=== PATIENT | female | born 1945 | race Caucasian/White ===

== ENCOUNTER 2018-11-20 10:50 | Day surgery (SDC) | payer MEDICARE, OTHER ==
[2018-11-19 11:28] VITALS: BMI 21.4
[~2018-11-20 10:50] MED LIST: LACTATED RINGERS 1,000 ML IV SCH; LIDOCAINE 1% 20 ML VIAL (10MG/ML) FOR IV START INTRADERMA PRN
[2018-11-20 11:41] VITALS: RESP 16; TEMP 97.7
[2018-11-20] MEDS ORDERED: PROPOFOL 10 MG/ML 20 ML VIAL IV ONE (12:45)
--- NOTE | 2018-11-20 13:38 | P.PCN ---
Date of Procedure: 11/20/18 Procedure(s) Performed: Procedures: 1. Esophagogastroduodenoscopy and biopsy. 2. Total colonoscopy. Preoperative diagnosis: Dyspepsia and history of diverticulitis. Postoperative diagnosis: 1. Sliding hiatal hernia with no obvious esophagitis or complicated reflux disease. 2. Mild gastritis and duodenitis. 3. Sigmoid diverticulosis with no evidence of acute diverticulitis, strictures, polyps or cancer. Brief clinical history: The patient is a 73-year-old female who was evaluated in the office earlier this month regarding dyspepsia and history of diverticulitis in June 2018 while in [place] which was treated with antibiotics for 2 weeks. Her last colonoscopy was more than 10 years ago and she believes she had an upper endoscopy around that time as well. Procedure: With the patient on her left lateral decubitus position and after informed consent and adequate sedation, I passed the Olympus-GIF H190 video upper endoscope through the cricopharyngeus down the esophagus. GE junction was around 38 cm from the incisors and there was a small sliding hiatal hernia with no obvious esophagitis or complicated reflux disease. The endoscope was then passed into the stomach which was insufflated with air and inspected in detail including the retroflex view in the cardia. There was some mottling and erythema in the antrum but no ulcers or erosions. Pyloric channel did not show any ulcers. Duodenal bulb, post bulbar area and descending duodenum showed minimal erythema. Because of her symptoms, I obtained biopsies from the duodenum, antrum and esophagus then the endoscope was withdrawn and I proceeded to perform the colonoscopy. Perianal area did not show any fissures or fistulas. There were no masses felt on digital rectal examination. The Olympus CFH 190L video colonoscope was then inserted in the rectum in the usual fashion and advanced to the cecum. There were multiple diverticular orifices seen scattered in the sigmoid but there was no evidence of acute colitis or strictures. No polyps or tumors were seen. The mucosa appeared healthy. I retroflexed the endoscope in the rectum before the endoscope was withdrawn. The patient tolerated the procedure well Plan: The patient was reassured Will await biopsy results and make further plans based on her course and biopsy results.
[2018-11-20 14:06] VITALS: BP 152/76; PULSE 66
== END 2018-11-20 14:05 | disposition home or self-care (01) ==
LOC: ORWHC2ENDO 10:50
DX: K57.30 Diverticulosis of large intestine without perforation or abscess without bleeding (principal); K44.9 Diaphragmatic hernia without obstruction or gangrene; K29.50 Unspecified chronic gastritis without bleeding; K29.80 Duodenitis without bleeding; K21.9 Gastro-esophageal reflux disease without esophagitis; I25.10 Atherosclerotic heart disease of native coronary artery without angina pectoris; I10 Essential (primary) hypertension; M19.90 Unspecified osteoarthritis, unspecified site; E78.5 Hyperlipidemia, unspecified; E07.9 Disorder of thyroid, unspecified; J45.909 Unspecified asthma, uncomplicated; Z95.810 Presence of automatic (implantable) cardiac defibrillator; Z95.5 Presence of coronary angioplasty implant and graft; Z79.82 Long term (current) use of aspirin; Z79.890 Hormone replacement therapy; Z79.899 Other long term (current) drug therapy; Z88.5 Allergy status to narcotic agent
CPT/HCPCS: 88305; 45378; 43239; J2704

== ENCOUNTER → 2019-02-26 | Outpatient (CLI) | payer MEDICARE ==
--- NOTE | 2019-02-26 13:34 | CT ---
EXAMINATION TYPE: CT lumbar spine wo con DATE OF EXAM: 02/26/2019 12:48 PM COMPARISON: X-ray 11/05/2013 HISTORY: Lower back pain to L5 CT DLP: 960 mGycm Automated exposure control for dose reduction was used. Unenhanced CT of the lumbar spine was performed. Bone and soft tissue window settings are submitted as well as coronal and sagittal reconstructions. There are bilateral nonobstructing renal calculi measuring less than 5 mm. Atherosclerotic change of the aorta is seen with a focal area of aortic the maximal measurement of 1.8 cm. L1-L2: Mild disc space narrowing. No obvious disc herniation or canal stenosis. Neural foramina paten t. L2-L3: Schmorl's node along the inferior endplate of L2. No definite disc herniation or canal stenosi s. No foraminal encroachment. L3-L4: No obvious disc herniation or canal stenosis. Neural foramina patent. Disc spaces preserved. L4-L5: Disc space preserved however there is broad-based central disc bulging or protrusion with effa cement of thecal sac. Facet arthropathy is noted. Mild central stenosis and bilateral mild neural for aminal encroachment suspected. L5-S1: Vacuum disc compatible severe degenerative disc disease. Broad-based central disc bulging but no canal stenosis. Mild bilateral neural foraminal encroachment. Discogenic marrow changes are seen a nd there is facet arthropathy IMPRESSION: 1. Severe degenerative disc disease L5-S1 with central disc bulging but no canal stenosis. Mild bilat eral foraminal encroachment. 2. Disc bulging centrally L4-L5 with effacement of thecal sac. Borderline to mild central stenosis an d mild bilateral foraminal encroachment. 3. There are bilateral nonobstructing renal calculi measuring less than 5 mm.
== END | disposition home or self-care (01) ==
LOC: RADCTMAIN 12:04
PROVIDERS: ATTEND Orthopaedic Surgery Orthopaedic Surgery of the Spine
DX: M48.061 Spinal stenosis, lumbar region without neurogenic claudication (principal); M51.37 Other intervertebral disc degeneration, lumbosacral region; M51.86 Other intervertebral disc disorders, lumbar region; M51.87 Other intervertebral disc disorders, lumbosacral region; I11.0 Hypertensive heart disease with heart failure; I50.9 Heart failure, unspecified; Z95.818 Presence of other cardiac implants and grafts
CPT/HCPCS: 72131

== ENCOUNTER → 2020-01-01 | Outpatient (CLI) | payer MEDICARE | END | disposition home or self-care (01) | LOC: LABWHC1 10:46 | PROVIDERS: ATTEND Internal Medicine Endocrinology, Diabetes & Metabolism | DX: E03.8 Other specified hypothyroidism (principal) | CPT/HCPCS: 36415; 84443 ==

== ENCOUNTER → 2020-03-14 | Outpatient (CLI) | payer MEDICARE | END | disposition home or self-care (01) | LOC: LABWHC1 11:37 | PROVIDERS: ATTEND Internal Medicine Endocrinology, Diabetes & Metabolism | DX: E03.8 Other specified hypothyroidism (principal) | CPT/HCPCS: 36415; 84443 ==

== ENCOUNTER → 2020-05-09 | Outpatient (CLI) | payer MEDICARE | END | disposition home or self-care (01) | LOC: LABWHC1 11:11 | PROVIDERS: ATTEND Internal Medicine Endocrinology, Diabetes & Metabolism | DX: E03.8 Other specified hypothyroidism (principal) | CPT/HCPCS: 36415; 84443 ==

== ENCOUNTER → 2020-06-30 | Outpatient (CLI) | payer MEDICARE | END | disposition home or self-care (01) | LOC: LABWHC1 10:48 | PROVIDERS: ATTEND Internal Medicine Endocrinology, Diabetes & Metabolism | DX: E03.8 Other specified hypothyroidism (principal) | CPT/HCPCS: 36415; 84443 ==

== ENCOUNTER → 2020-08-22 | Outpatient (CLI) | payer MEDICARE | END | disposition home or self-care (01) | LOC: LABWHC1 10:29 | PROVIDERS: ATTEND Internal Medicine Endocrinology, Diabetes & Metabolism | DX: E03.8 Other specified hypothyroidism (principal) | CPT/HCPCS: 36415; 84443 ==

== ENCOUNTER → 2020-11-09 | Outpatient (CLI) | payer MEDICARE | END | disposition home or self-care (01) | LOC: LABWHC1 10:04 | PROVIDERS: ATTEND Internal Medicine Endocrinology, Diabetes & Metabolism | DX: E03.8 Other specified hypothyroidism (principal) | CPT/HCPCS: 36415; 84443 ==

== ENCOUNTER → 2021-02-27 | Outpatient (CLI) | payer MEDICARE | END | disposition home or self-care (01) | LOC: LABWHC1 10:37 | PROVIDERS: ATTEND Internal Medicine Endocrinology, Diabetes & Metabolism | DX: E03.8 Other specified hypothyroidism (principal) | CPT/HCPCS: 36415; 84443 ==

== ENCOUNTER 2021-05-18 05:04 | Emergency (ER) | payer MEDICARE ==
[2021-05-18 05:15] VITALS: BP 158/90; PULSE 98; RESP 18; TEMP 99.3
--- NOTE | 2021-05-18 05:18 | ED ---
Recheck HPI - General Chief Complaint: Upper Respiratory Infection Stated Complaint: Cough, Covid+ Time Seen by Provider: 05/18/21 05:06 Source: patient, RN notes reviewed, old records reviewed Mode of arrival: ambulatory Limitations: no limitations - History of Present Illness Initial Comments: This is a 76-year-old female with known history of coronavirus coming in for antibiotic treatment. Patient does have positive coronavirus exposure patient has been vaccinated. Patient has no complaints of chest pain or shortness of breath. MD Complaint: abnormal lab (Positive coronavirus) -: days(s) Returns Today for: persistent/worsening pain related to initial visit Symptoms Since Prior Visit: no new symptoms Context: planned re-check Associated Symptoms: none Treatments Prior to Arrival: other (none) - Related Data Home Medications Medication Instructions Recorded Confirmed Aspirin 81 mg PO DAILY 01/11/14 11/20/18 Fluticasone Propionate [Flonase] 1 spray EA NOSTRIL BID 01/11/14 11/20/18 Losartan [Cozaar] 25 mg PO 1700 01/11/14 11/20/18 Montelukast [Singulair] 10 mg PO HS 01/11/14 11/20/18 carvediloL [Coreg] 3.125 mg PO BID 01/11/14 11/20/18 Fluticasone/Salmeterol [Advair 1 inhalation PO BID 11/19/18 11/20/18 100-50 Diskus] L.acidoph,Paracasei, B.lactis 1 each PO BID 11/19/18 11/20/18 [Probiotic] Levothyroxine Sodium [Synthroid] 88 mcg PO DAILY 11/19/18 11/20/18 Rosuvastatin [Crestor] 10 mg PO MOTUWETHFR 11/19/18 11/20/18 Super Papaya Enzyme 2 tab PO BID 11/19/18 11/20/18 Turmeric Root Extract [Turmeric] 1,000 mg PO BID 11/19/18 11/20/18 Ubidecarenone [Co Q-10] 200 mg PO DAILY 11/19/18 11/20/18 Allergies Allergy/AdvReac Type Severity Reaction Status Date / Time codeine AdvReac Abdominal Verified 05/18/21 05:15 Pain Review of Systems ROS Statement: Those systems with pertinent positive or pertinent negative responses have been documented in the HPI. ROS Other: All systems not noted in ROS Statement are negative. Past Medical History Past Medical History: Asthma, Coronary Artery Disease (CAD), Hyperlipidemia, Hypertension, Osteoarthritis (OA), Thyroid Disorder Additional Past Medical History / Comment(s): heart murmer, "a lot of burping", "small gallstone", polymyalgia rheumatica, urinary leakage,. COVID 05/16 History of Any Multi-Drug Resistant Organisms: None Reported Past Surgical History: AICD, Appendectomy, Heart Catheterization With Stent, Pacemaker Additional Past Surgical History / Comment(s): two cardiac stents, left oophorectomy, left fallopian tube Past Anesthesia/Blood Transfusion Reactions: Previous Problems w/ Anesthesia Additional Past Anesthesia/Blood Transfusion Reaction / Comment(s): got blood transfusion at age 19- got a rash Date of Last Stent Placement:: 2015 Type of Cardiac Device: Permanent Pacemaker, AICD Device Placement Date:: 2015 Past Psychological History: Anxiety Smoking Status: Never smoker Past Alcohol Use History: Occasional Past Drug Use History: None Reported - Past Family History Father Family Medical History: Cancer Brother(s) Family Medical History: Cancer General Exam Limitations: no limitations General appearance: alert, in no apparent distress Head exam: Present: atraumatic, normocephalic, normal inspection Eye exam: Present: normal appearance, PERRL, EOMI. Absent: scleral icterus, conjunctival injection, periorbital swelling ENT exam: Present: normal exam, mucous membranes moist Neck exam: Present: normal inspection. Absent: tenderness, meningismus, lymphadenopathy Respiratory exam: Present: normal lung sounds bilaterally. Absent: respiratory distress, wheezes, rales, rhonchi, stridor Cardiovascular Exam: Present: regular rate, normal rhythm, normal heart sounds. Absent: systolic murmur, diastolic murmur, rubs, gallop, clicks GI/Abdominal exam: Present: soft, normal bowel sounds. Absent: distended, tenderness, guarding, rebound, rigid Extremities exam: Present: normal inspection, full ROM, normal capillary refill. Absent: tenderness, pedal edema, joint swelling, calf tenderness Back exam: Present: normal inspection Neurological exam: Present: alert, oriented X3, CN II-XII intact Psychiatric exam: Present: normal affect, normal mood Skin exam: Present: warm, dry, intact, normal color. Absent: rash Course Vital Signs 05/18/21 05:11 Temperature 99.3 F Pulse Rate 98 Respiratory 18 Rate Blood Pressure 158/90 O2 Sat by Pulse 96 Oximetry - Reevaluation(s) Reevaluation #1: 05/18/21 Medical record is reviewed Patient symptoms are significantly improved here in the emergency department Patient informed results and questions answered Patient has no reaction and okay for discharge home Medical Decision Making - Medical Decision Making 76 female positive at home test for coronavirus. Patient presents for coronavirus testing today, given antibodies for positive test and able for qualification. Patient can be discharged home - Lab Data Lab Results 05/18/21 Range/Units 05:19 Coronavirus (PCR) Detected A (Not Detectd) Disposition Clinical Impression: Coronavirus infection, COVID-19 Disposition: HOME SELF-CARE Condition: Good Instructions (If sedation given, give patient instructions): Coronavirus Disease 2019 (COVID-19) Is patient prescribed a controlled substance at d/c from ED?: No Referrals: Adeel Johnson DO [Primary Care Provider] - 1-2 days
[2021-05-18] MEDS ORDERED: SODIUM CHLORIDE 0.9% 50 ML IVPB ONE (06:45)
[2021-05-18] MEDS ORDERED: CASIRIVIMAB (REGN10933) (EUA) 600 MG, IMDEVIMAB (REGN10987) (EUA) 600 MG in SODIUM CHLO... IVPB ONE (07:00)
== END 2021-05-18 08:25 | disposition home or self-care (01) ==
LOC: EC 05:04
DX: U07.1 COVID-19 (principal); J45.909 Unspecified asthma, uncomplicated; E07.9 Disorder of thyroid, unspecified; I10 Essential (primary) hypertension; E78.5 Hyperlipidemia, unspecified; I25.10 Atherosclerotic heart disease of native coronary artery without angina pectoris; Z86.16 Personal history of COVID-19; M19.90 Unspecified osteoarthritis, unspecified site; Z95.810 Presence of automatic (implantable) cardiac defibrillator; Z88.5 Allergy status to narcotic agent; Z79.899 Other long term (current) drug therapy; Z79.82 Long term (current) use of aspirin; Z79.51 Long term (current) use of inhaled steroids; Z79.890 Hormone replacement therapy
CPT/HCPCS: 87635; 99283; Q0244

== ENCOUNTER → 2021-06-26 | Outpatient (CLI) | payer MEDICARE ==
--- NOTE | 2021-06-26 17:06 | CT ---
EXAMINATION TYPE: CT angio chest DATE OF EXAM: 06/26/2021 COMPARISON: None HISTORY: Shortness of breath x [address] DLP: 546 mGycm Automated exposure control for dose reduction was used. CONTRAST: Performed with IV Contrast, patient injected with 70 mL of Isovue 370. Images obtained from the thoracic inlet to the diaphragm with IV contrast. There are Three-D postproc essed images. There is left axillary pacemaker. The lungs are clear of consolidation. There is no pleural effusion. Heart is enlarged. There is no pericardial effusion. There is no mediastinal adenopathy. There are n o hilar masses. Thoracic aorta shows mild atheromatous changes. There is no aneurysm or dissection. T he ascending aorta measures 3.2 cm. There is normal contrast opacification of the pulmonary arteries. There are no filling defects. The thoracic spine is intact. There is no compression fracture. Sternum is intact. The upper abdomina l soft tissues appear intact. IMPRESSION: No evidence of pulmonary embolism. Minimal scarring at the right lung apex. No suspicious pulmonary m ass. No evidence of acute lung disease. Minimal scarring or subsegmental atelectasis at the lung base s.
== END | disposition home or self-care (01) ==
LOC: RADCTMAIN 15:13
PROVIDERS: ATTEND Internal Medicine
DX: R06.02 Shortness of breath (principal)
CPT/HCPCS: 82565; 84520; 71275; 36415; Q9967

== ENCOUNTER → 2022-04-06 | Outpatient (CLI) | payer MEDICARE | END | disposition home or self-care (01) | LOC: LABWHC1 14:06 | PROVIDERS: ATTEND Internal Medicine Endocrinology, Diabetes & Metabolism | DX: E03.8 Other specified hypothyroidism (principal) | CPT/HCPCS: 36415; 84443 ==

== ENCOUNTER → 2022-09-25 | Outpatient (CLI) | payer MEDICARE ==
--- NOTE | 2022-09-25 17:30 | CT ---
EXAMINATION TYPE: CT abdomen pelvis wo con DATE OF EXAM: 09/25/2022 COMPARISON: None HISTORY: 77-year-old female R1 0.817, abdominal tenderness, LLQ pain x1 week CT DLP: 741 mGycm. Automated exposure control for dose reduction was used. TECHNIQUE: Contiguous axial scanning of the abdomen and pelvis without IV contrast. Coronal and sagit brenton reconstructions performed. FINDINGS: Heart is borderline enlarged. Pacer leads are noted. No pericardial effusion. Strandy atelectasis or scarring in the lower lungs. No pleural effusion. Small hiatal hernia. 2.2 cm gallstone. No abnormal gallbladder distention. Otherwise, noncontrast appearance of the liver, adrenal glands, kidneys, spleen, pancreas show no mackenzie ss abnormality. Moderate atherosclerotic calcifications abdominal aorta. No dilated small bowel, free fluid, or free air. No mesenteric or retroperitoneal lymphadenopathy. Mild to moderate stool burden. Left-sided colonic diverticulosis, greatest in the sigmoid colon. There is a segment of wall thickening and mild pericolonic stranding along the proximal sigmoid colon . Bladder nondistended. Uterus is anteverted. Right ovary is visualized. Left ovary is obscured by vicki cent bowel. Multiple pelvic fluid ligaments. No abnormal fluid collection in the pelvis or pelvic lym phadenopathy. Bones: Inferior endplate Schmorl's node L2. Moderate degenerative disc disease L5-S1. Facet arthropat hy lower lumbar spine. IMPRESSION: 1. Left hemicolonic diverticulosis, greatest in the sigmoid colon. Wall thickening and mild pericolo zahraa stranding along the proximal sigmoid colon suggests mild acute diverticulitis. No abscess or free air. Given the wall thickening, recommend direct visualization after successful treatment to exclude underlying mucosal lesion. 2. A 2.2 cm gallstone and small hiatal hernia.
== END | disposition home or self-care (01) ==
LOC: RADCTMAIN 12:22
PROVIDERS: ATTEND Family Medicine
DX: K57.32 Diverticulitis of large intestine without perforation or abscess without bleeding (principal); K21.9 Gastro-esophageal reflux disease without esophagitis; K80.20 Calculus of gallbladder without cholecystitis without obstruction; K44.9 Diaphragmatic hernia without obstruction or gangrene
CPT/HCPCS: 74176

== ENCOUNTER → 2022-10-05 | Outpatient (CLI) | payer MEDICARE | END | disposition home or self-care (01) | LOC: LABWHC1 08:51 | PROVIDERS: ATTEND Nurse Practitioner Family | DX: E03.8 Other specified hypothyroidism (principal) | CPT/HCPCS: 36415; 84443 ==

== ENCOUNTER 2022-10-19 10:25 | Emergency (ER) | payer MEDICARE ==
[2022-10-19] MEDS ORDERED: SODIUM CHLORIDE 0.9% 500 ML 500 ML IV STA (10:41)
[2022-10-19] MEDS ORDERED: fentaNYL (PF) 50 MCG/ML 2 ML AMP IVP STA (10:42)
--- NOTE | 2022-10-19 10:53 | ED ---
Abdominal Pain HPI - General Chief Complaint: Abdominal Pain Stated Complaint: ABD Pain Time Seen by Provider: 10/19/22 10:34 Source: patient, RN notes reviewed, old records reviewed Mode of arrival: ambulatory Limitations: no limitations - History of Present Illness Initial Comments: This is a well-appearing 77-year-old female that presents with family complaining of left lower quadrant pain. Sent by her primary care doctor for reevaluation. Patient was diagnosed by CT with diverticulitis on September 25 and put on Cipro. She finished this medication and was pain-free for 12 days then pain recurred. She did see her primary care doctor on the who prescribed her moxifloxacin which she is started yesterday with no improvement in her symptoms. States abdomen is tender and feels full. Last normal bowel movement was this morning and has been taking Metamucil daily. Denies any fevers. No nausea vomiting diarrhea. No chest pain or difficulty in breathing. Does have history of asthma, coronary artery disease, hypertension, hyperlipidemia. Surgical history of AICD, heart cath, left oophorectomy and appendectomy. MD Complaint: abdominal pain -: week(s) (3) Location: LLQ Radiation: back Severity scale (1-10): 8 Quality: fullness Consistency: constant Context: recent antibiotic use (cipro for diverticulitis) Treatments Prior to Arrival: other (Moxifloxacin) - Related Data Home Medications Medication Instructions Recorded Confirmed Aspirin 81 mg PO HS 01/11/14 10/19/22 Fluticasone Propionate [Flonase] 1 spray EA NOSTRIL BID 01/11/14 10/19/22 Montelukast [Singulair] 10 mg PO HS 01/11/14 10/19/22 Fluticasone Propion/Salmeterol 1 puff INHALATION RT-BID 11/19/18 10/19/22 [Advair 100-50 Diskus] L.acidoph,Paracasei, B.lactis 1 cap PO HS 11/19/18 10/19/22 [Probiotic] Rosuvastatin [Crestor] 10 mg PO HS 11/19/18 10/19/22 Ubidecarenone [Co Q-10] 100 mg PO HS 11/19/18 10/19/22 Albuterol Inhaler [Ventolin Hfa 2 puff INHALATION RT-Q6H PRN 10/19/22 10/19/22 Inhaler] Cholecalciferol [Vitamin D3 (25 25 mcg PO HS 10/19/22 10/19/22 Mcg = 1000 Iu)] Levothyroxine Sodium [Synthroid] 62.5 mcg PO DAILY 10/19/22 10/19/22 Moxifloxacin HCl [Avelox] 400 mg PO DAILY 10/19/22 10/19/22 Multivitamins, Thera [Multivitamin 1 tab PO HS 10/19/22 10/19/22 (formulary)] Nitroglycerin Sl Tabs [Nitrostat] 0.4 mg SUBLINGUAL Q5M PRN 10/19/22 10/19/22 Sacubitril/Valsartan [Entresto 24 1 tab PO BID 10/19/22 10/19/22 mg-26 mg Tablet] carvediloL [Coreg] 6.25 mg PO BID 10/19/22 10/19/22 Allergies Allergy/AdvReac Type Severity Reaction Status Date / Time codeine AdvReac Abdominal Verified 10/19/22 11:30 Pain Review of Systems ROS Statement: Those systems with pertinent positive or pertinent negative responses have been documented in the HPI. ROS Other: All systems not noted in ROS Statement are negative. Past Medical History Past Medical History: Asthma, Coronary Artery Disease (CAD), Hyperlipidemia, Hypertension, Osteoarthritis (OA), Thyroid Disorder Additional Past Medical History / Comment(s): heart murmer, "a lot of burping", "small gallstone", polymyalgia rheumatica, urinary leakage,. COVID 05/16 History of Any Multi-Drug Resistant Organisms: None Reported Past Surgical History: AICD, Appendectomy, Heart Catheterization With Stent, Pacemaker Additional Past Surgical History / Comment(s): two cardiac stents, left oophorectomy, left fallopian tube Past Anesthesia/Blood Transfusion Reactions: Previous Problems w/ Anesthesia Additional Past Anesthesia/Blood Transfusion Reaction / Comment(s): got blood transfusion at age 19- got a rash Date of Last Stent Placement:: 2015 Type of Cardiac Device: Permanent Pacemaker, AICD Device Placement Date:: 2015 Past Psychological History: Anxiety Smoking Status: Never smoker Past Alcohol Use History: Occasional Past Drug Use History: None Reported - Past Family History Father Family Medical History: Cancer Brother(s) Family Medical History: Cancer General Exam Limitations: no limitations General appearance: alert, in no apparent distress Head exam: Present: atraumatic Eye exam: Present: normal appearance. Absent: scleral icterus, conjunctival injection, periorbital swelling Neck exam: Absent: tenderness, meningismus Respiratory exam: Present: normal lung sounds bilaterally. Absent: respiratory distress, accessory muscle use Cardiovascular Exam: Present: regular rate GI/Abdominal exam: Present: soft, tenderness (llq). Absent: guarding, rebound, rigid Extremities exam: Present: normal capillary refill. Absent: pedal edema Back exam: Absent: tenderness, CVA tenderness (R), CVA tenderness (L) Neurological exam: Present: alert, oriented X3 Psychiatric exam: Present: normal affect, normal mood Skin exam: Present: warm, dry. Absent: cyanosis, diaphoretic, pallor Course Vital Signs 10/19/22 10/19/22 10/19/22 10:32 10:45 11:30 Temperature 98.1 F 97.0 F L Pulse Rate 91 86 88 Respiratory 20 18 18 Rate Blood Pressure 108/71 116/70 109/84 O2 Sat by Pulse 99 95 95 Oximetry 10/19/22 13:47 Temperature Pulse Rate 87 Respiratory 18 Rate Blood Pressure 132/83 O2 Sat by Pulse 95 Oximetry Medical Decision Making - Medical Decision Making Was pt. sent in by a medical professional or institution ([facility], HISTORY TEACHER, urgent care, hospital, or fdc...) When possible be specific @ -Primary care doctor Did you speak to anyone other than the patient for history (EMS, parent, family, police, friend...)? What history was obtained from this source @ -No Did you review nursing and triage notes (agree or disagree)? Why? @ -I reviewed and agree with nursing and triage notes Were old charts reviewed (outside hosp., previous admission, EMS record, old EKG, old radiological studies, urgent care reports/EKG's, fdc records)? Report findings @ -CT report from September 25 Differential Diagnosis (chest pain, altered mental status, abdominal pain women, abdominal pain men, vaginal bleeding, weakness, fever, dyspnea, syncope, headache, dizziness, GI bleed, back pain, seizure, CVA, palpatations, mental health, musculoskeletal)? @ -Differential Abdominal Pain Women: Appendicitis, Cholecystitis, diverticulosis, ischemic bowel, pancreatitis, hepatitis, UTI, gastroenteritis, AAA, incarcerated hernia, bowel obstruction, constipation, inflammatory bowel, hepatitis, peptic ulcer disease, splenic infarction, perforated viscus, vulvitis, ovarian torsion, PID, kidney stone, placenta abruption, this is not meant to be an all-inclusive list EKG interpreted by me (3pts min.). @ -yes as above, EKG interpreted by me shows electronic ventricular pacemaker with capture. Ventricular rate of 87, UT interval 0.156, QRS 0.165, QTC 0.459. No concerning change compared to old 01/11/2014. X-rays interpreted by me (1pt min.). @ -None done CT interpreted by me (1pt min.). @ -no U/S interpreted by me (1pt. min.). @ -None done What testing was considered but not performed or refused? (CT, X-rays, U/S, labs)? Why? @ -None What meds were considered but not given or refused? Why? @ -IV antibiotics were considered however patient does not have a white count or fever and is currently taking antibiotics which she started yesterday. Did you discuss the management of the patient with other professionals (professionals i.e. , PA, HISTORY TEACHER, lab, RT, psych nurse, social sciences professor, shirt maker, teacher, front desk officer, case loader operator)? Give summary @ -No Was smoking cessation discussed for >3mins.? @ -No Was critical care preformed (if so, how long)? @ -No Were there social determinants of health that impacted care today? How? (Homelessness, low income, unemployed, alcoholism, drug addiction, transportation, low edu. Level, literacy, decrease access to med. care, penitentiary, rehab)? @ -No Was there de-escalation of care discussed even if they declined (Discuss DNR or withdrawal of care, Hospice)? DNR status @ -No What co-morbidities impacted this encounter? (DM, HTN, Smoking, COPD, CAD, Cancer, CVA, ARF, Chemo, Hep., AIDS, mental health diagnosis, sleep apnea, morbid obesity)? @ -Asthma, coronary artery disease, hypertension, hyperlipidemia, hypothyroidism, pacemaker, diverticulitis Was patient admitted / discharged? Hospital course, mention meds given and route, prescriptions, significant lab abnormalities, going to OR and other pertinent info. @ -Discharged. CT abdomen and pelvis was performed on September 25 showing left hemicolonic diverticulosis with mild acute diverticulitis. No abscess or free air. Also noted was a 2.2 cm gallstone and small hiatal hernia. At time patient was placed on Cipro and she did finish this medication and was pain-free for 12 days until pain resumed yesterday. She did contact her primary care doctor who put her on moxifloxacin yesterday and directed her to the emergency room with increased pain. Today labs show a CBC with no evidence of leukocytosis. Lactic acid negative at 1.7 Troponin negative at 0.012. CT the abdomen shows positive for acute diverticulitis of the proximal sigmoid colon with moderate associated inflammation. No abscess or free air. There may be secondary to mild small bowel ileus in the lower abdomen and pelvis. Cholelithiasis as previous CT. Patient is currently taking moxifloxacin and had first dose yesterday. Patient's bloating sensation may be related to using Metamucil. Patient was offered admission and declined. States that her pain is controlled. Strict return parameters were discussed. She was directed to discontinue the Metamucil at this time continue and continue the antibiotics as prescribed by her doctor follow-up with doctor next week and return to the emergency room with any new or concerning symptoms. Patient and family member are agreeable to this plan of care. Case was discussed with Dr. Inman Undiagnosed new problem with uncertain prognosis? @ -No Drug Therapy requiring intensive monitoring for toxicity (Heparin, Nitro, Insulin, Cardizem)? @ -No Were any procedures done? @ -No Diagnosis/symptom? @ -Diverticulitis Acute, or Chronic, or Acute on Chronic? @ -Acute Uncomplicated (without systemic symptoms) or Complicated (systemic symptoms)? @ -Uncomplicated Side effects of treatment? @ -No Exacerbation, Progression, or Severe Exacerbation? @ -No Poses a threat to life or bodily function? How? (Chest pain, [place], NH, pneumonia, PE, COPD, DKA, ARF, appy, cholecystitis, CVA, Diverticulitis, Homicidal, Suicidal, threat to staff... and all critical care pts) @ -No - Lab Data Result diagrams: 10/19/22 10:54 10/19/22 10:54 Lab Results 10/19/22 10/19/22 10/19/22 Range/Units 10:54 10:54 10:54 WBC 9.9 (3.8-10.6) k/uL RBC 5.10 (3.80-5.40) m/uL Hgb 14.2 (11.4-16.0) gm/dL Hct 44.2 (34.0-46.0) % MCV 86.6 (80.0-100.0) fL MCH 27.9 (25.0-35.0) pg MCHC 32.3 (31.0-37.0) g/dL RDW 13.9 (11.5-15.5) % Plt Count 242 (150-450) k/uL MPV 7.4 Neutrophils % 72 % Lymphocytes % 15 % Monocytes % 7 % Eosinophils % 5 % Basophils % 0 % Neutrophils # 7.1 (1.3-7.7) k/uL Lymphocytes # 1.5 (1.0-4.8) k/uL Monocytes # 0.7 (0-1.0) k/uL Eosinophils # 0.5 (0-0.7) k/uL Basophils # 0.0 (0-0.2) k/uL PT 10.5 (9.0-12.0) sec INR 1.0 (<1.2) APTT 30.4 H (22.0-30.0) sec Sodium 142 (137-145) mmol/L Potassium 4.7 (3.5-5.1) mmol/L Chloride 103 (98-107) mmol/L Carbon Dioxide 27 (22-30) mmol/L Anion Gap 12 mmol/L BUN 15 (7-17) mg/dL Creatinine 1.04 (0.52-1.04) mg/dL Est GFR (CKD-EPI)AfAm 60 (>60 ml/min/1.73 sqM) Est GFR (CKD-EPI)NonAf 52 (>60 ml/min/1.73 sqM) Glucose 103 H (74-99) mg/dL Plasma Lactic Acid Gabriel (0.7-2.0) mmol/L Calcium 9.6 (8.4-10.2) mg/dL Total Bilirubin 0.7 (0.2-1.3) mg/dL AST 31 (14-36) U/L ALT 19 (4-34) U/L Alkaline Phosphatase 77 (38-126) U/L Troponin I (0.000-0.034) ng/mL Total Protein 8.0 (6.3-8.2) g/dL Albumin 4.5 (3.5-5.0) g/dL Amylase 100 (30-110) U/L Lipase 109 (23-300) U/L 10/19/22 10/19/22 Range/Units 10:54 10:54 WBC (3.8-10.6) k/uL RBC (3.80-5.40) m/uL Hgb (11.4-16.0) gm/dL Hct (34.0-46.0) % MCV (80.0-100.0) fL MCH (25.0-35.0) pg MCHC (31.0-37.0) g/dL RDW (11.5-15.5) % Plt Count (150-450) k/uL MPV Neutrophils % % Lymphocytes % % Monocytes % % Eosinophils % % Basophils % % Neutrophils # (1.3-7.7) k/uL Lymphocytes # (1.0-4.8) k/uL Monocytes # (0-1.0) k/uL Eosinophils # (0-0.7) k/uL Basophils # (0-0.2) k/uL PT (9.0-12.0) sec INR (<1.2) APTT (22.0-30.0) sec Sodium (137-145) mmol/L Potassium (3.5-5.1) mmol/L Chloride (98-107) mmol/L Carbon Dioxide (22-30) mmol/L Anion Gap mmol/L BUN (7-17) mg/dL Creatinine (0.52-1.04) mg/dL Est GFR (CKD-EPI)AfAm (>60 ml/min/1.73 sqM) Est GFR (CKD-EPI)NonAf (>60 ml/min/1.73 sqM) Glucose (74-99) mg/dL Plasma Lactic Acid Gabriel 1.7 (0.7-2.0) mmol/L Calcium (8.4-10.2) mg/dL Total Bilirubin (0.2-1.3) mg/dL AST (14-36) U/L ALT (4-34) U/L Alkaline Phosphatase (38-126) U/L Troponin I <0.012 (0.000-0.034) ng/mL Total Protein (6.3-8.2) g/dL Albumin (3.5-5.0) g/dL Amylase (30-110) U/L Lipase (23-300) U/L - EKG Data -: EKG Interpreted by Me EKG Comments: EKG shows electronic ventricular pacemaker with capture. Ventricular rate 87, UT interval 0.156, QRS 0.165, QTC 0.459 Disposition Clinical Impression: Diverticulitis Disposition: HOME SELF-CARE Condition: Good Instructions (If sedation given, give patient instructions): Diverticulitis (ED), Diverticulitis Diet (ED) Additional Instructions: Stop or take the Metamucil every other day. Increase your fluid intake. Lesly acosta a diverticulitis diet. Continue the antibiotics as prescribed. Return to the emergency room with any new or concerning symptoms including increased pain, fever or persistent nausea vomiting. Follow-up with the primary care doctor on Saturday for reevaluation. Is patient prescribed a controlled substance at d/c from ED?: No Referrals: Adeel Johnson DO [Primary Care Provider] - 1-2 days Time of Disposition: 13:42
[2022-10-19 11:07] LABS: Basophils % (A) 0 %; Eosinophils # (A) 0.5 k/uL (0-0.7); Eosinophils % (A) 5 %; HCT 44.2 % (34.0-46.0); HGB 14.2 gm/dL (11.4-16.0); Lymphocytes # (A) 1.5 k/uL (1.0-4.8); Lymphocytes % (A) 15 %; MCH 27.9 pg (25.0-35.0); MCHC 32.3 g/dL (31.0-37.0); MCV 86.6 fL (80.0-100.0); Mean Platelet Volume 7.4; Monocytes # (A) 0.7 k/uL (0-1.0); Monocytes % (A) 7 %; Neutrophils # (A) 7.1 k/uL (1.3-7.7); Neutrophils % (A) 72 %; Platelet Count 242 k/uL (150-450); RDW 13.9 % (11.5-15.5); WBC 9.9 k/uL (3.8-10.6)
[2022-10-19 11:15] LABS: Partial Thromboplastin Time 30.4 sec (22.0-30.0); Prothrombin Time 10.5 sec (9.0-12.0)
[2022-10-19 11:26] VITALS: RESP 18; TEMP 97
[2022-10-19] MEDS ORDERED: KETOROLAC 15 MG/ML 1 ML VIAL IVP STA (11:27)
[2022-10-19 11:29] LABS: Albumin 4.5 g/dL (3.5-5.0); Calcium 9.6 mg/dL (8.4-10.2); Potassium 4.7 mmol/L (3.5-5.1); Total Bilirubin 0.7 mg/dL (0.2-1.3)
--- NOTE | 2022-10-19 13:10 | CT ---
EXAMINATION TYPE: CT abdomen pelvis w con DATE OF EXAM: 10/19/2022 COMPARISON: 09/25/2022 HISTORY: 77-year-old female abdominal pain, Diverticulitis, worse pain TECHNIQUE: Contiguous axial scanning of the abdomen and pelvis following administration of 100 ml Iso colten 300 IV contrast. Delayed images through the kidneys and coronal/sagittal reconstructions perform ed. CT DLP: 824.5 mGycm Automated exposure control for dose reduction was used. FINDINGS: Heart mildly enlarged without pericardial effusion. 3 pacer leads are noted. Strandy atelectasis in t he lower lungs. No pleural effusion. No focal liver lesion or biliary ductal dilatation. Portal venous system is patent. There is a large 2.6 cm gallstone. No abnormal gallbladder distention. Suspect additional smaller und erlying noncalcified gallstones. Adrenal glands, right kidney, spleen, and pancreas within normal limits. There is diffuse fold thickening gastric fundus and proximal to mid gastric body which may be due to nondistention. Tiny 4 mm cortical cyst anterior midpole left kidney. Moderate atherosclerotic calcifications throughout the abdominal aorta and mild within the common sofia ac arteries. No dilated small bowel, free fluid, or free air. Some prominent fluid-filled small bowel loops in the lower abdomen and pelvis and liquid stool in the cecum. Appendix not discretely visualized. Mild ove rall stool burden. Left-sided colonic diverticulosis, more extensive along the sigmoid colon. There is focal moderate ci rcumferential wall thickening and mild to moderate inflammatory fat stranding at the level of the pro ximal sigmoid colon. Bladder is urine distended. Pelvic phleboliths. Uterus anteverted. Small bilateral ovaries. No abnorm al fluid collection the pelvis or pelvic lymphadenopathy. Bones: Facet arthropathy mid to lower lumbar spine. Moderate degenerative disc disease L5-S1. DEXA co nvex curvature upper lumbar spine. IMPRESSION: 1. EXAM POSITIVE FOR ACUTE DIVERTICULITIS OF THE PROXIMAL SIGMOID COLON. MODERATE ASSOCIATED INFLAMMA TION. NO ABSCESS OR FREE AIR. GIVEN THE WALL THICKENING, RECOMMEND DIRECT VISUALIZATION FOLLOWING [facility] CESSFUL TREATMENT. 2. There may be a secondary mild small bowel ileus in the lower abdomen and pelvis. 3. Cholelithiasis.
[2022-10-19 13:48] VITALS: BP 132/83; PULSE 87
== END 2022-10-19 13:57 | disposition home or self-care (01) ==
LOC: EC 10:25
DX: K57.32 Diverticulitis of large intestine without perforation or abscess without bleeding (principal); K80.20 Calculus of gallbladder without cholecystitis without obstruction; I10 Essential (primary) hypertension; I25.10 Atherosclerotic heart disease of native coronary artery without angina pectoris; E78.5 Hyperlipidemia, unspecified; J45.909 Unspecified asthma, uncomplicated; M19.90 Unspecified osteoarthritis, unspecified site; F41.9 Anxiety disorder, unspecified; Z79.51 Long term (current) use of inhaled steroids; Z79.82 Long term (current) use of aspirin; Z79.899 Other long term (current) drug therapy; Z88.5 Allergy status to narcotic agent
CPT/HCPCS: 36415; 93005; 80053; 82150; 83605; 83690; 84484; 85025; 85610; 85730; 74177; 99284; 96374; 96361 ×2; J1885; Q9967

== ENCOUNTER 2023-01-26 20:43 | Emergency (ER) | payer MEDICARE ==
[2023-01-26] MEDS ORDERED: SODIUM CHLORIDE 0.9% 500 ML 500 ML IV STA (21:29)
[2023-01-26 21:41] LABS: Basophils % (A) 0 %; Eosinophils # (A) 0.7 k/uL (0-0.7); Eosinophils % (A) 4 %; HCT 44.3 % (34.0-46.0); HGB 14.5 gm/dL (11.4-16.0); Lymphocytes # (A) 1.8 k/uL (1.0-4.8); Lymphocytes % (A) 11 %; MCH 27.8 pg (25.0-35.0); MCHC 32.7 g/dL (31.0-37.0); MCV 85.1 fL (80.0-100.0); Mean Platelet Volume 7.7; Monocytes % (A) 6 %; Neutrophils # (A) 11.9 k/uL (1.3-7.7); Neutrophils % (A) 77 %; Platelet Count 245 k/uL (150-450); RBC 5.21 m/uL (3.80-5.40); RDW 14.5 % (11.5-15.5); WBC 15.6 k/uL (3.8-10.6)
--- NOTE | 2023-01-26 21:41 | ED ---
Abdominal Pain HPI - General Chief Complaint: Abdominal Pain Stated Complaint: Abd Pain Time Seen by Provider: 01/26/23 21:13 Source: patient Mode of arrival: ambulatory Limitations: no limitations - History of Present Illness Initial Comments: Is a 77-year-old female presenting with chief complaint of abdominal pain. Patient states that she is feeling a spasming sensation in the lower pelvic region. It started today. She also admits to diarrhea. No nausea or vomiting. No chest pain or difficulty breathing. No dysuria, hematuria, urgency, frequency, flank pain. No hematochezia or melena. No fevers or chills. - Related Data Home Medications Medication Instructions Recorded Confirmed Aspirin 81 mg PO HS 01/11/14 10/19/22 Fluticasone Propionate [Flonase] 1 spray EA NOSTRIL BID 01/11/14 10/19/22 Montelukast [Singulair] 10 mg PO HS 01/11/14 10/19/22 Fluticasone Propion/Salmeterol 1 puff INHALATION RT-BID 11/19/18 10/19/22 [Advair 100-50 Diskus] L.acidoph,Paracasei, B.lactis 1 cap PO HS 11/19/18 10/19/22 [Probiotic] Rosuvastatin [Crestor] 10 mg PO HS 11/19/18 10/19/22 Ubidecarenone [Co Q-10] 100 mg PO HS 11/19/18 10/19/22 Albuterol Inhaler [Ventolin Hfa 2 puff INHALATION RT-Q6H PRN 10/19/22 10/19/22 Inhaler] Cholecalciferol [Vitamin D3 (25 25 mcg PO HS 10/19/22 10/19/22 Mcg = 1000 Iu)] Levothyroxine Sodium [Synthroid] 62.5 mcg PO DAILY 10/19/22 10/19/22 Moxifloxacin HCl [Avelox] 400 mg PO DAILY 10/19/22 10/19/22 Multivitamins, Thera [Multivitamin 1 tab PO HS 10/19/22 10/19/22 (formulary)] Nitroglycerin Sl Tabs [Nitrostat] 0.4 mg SUBLINGUAL Q5M PRN 10/19/22 10/19/22 Sacubitril/Valsartan [Entresto 24 1 tab PO BID 10/19/22 10/19/22 mg-26 mg Tablet] carvediloL [Coreg] 6.25 mg PO BID 10/19/22 10/19/22 Previous Rx's Medication Instructions Recorded Cephalexin [Keflex] 500 mg PO Q12HR 7 Days #14 cap 01/26/23 Allergies Allergy/AdvReac Type Severity Reaction Status Date / Time codeine AdvReac Abdominal Verified 01/26/23 20:57 Pain Review of Systems ROS Statement: Those systems with pertinent positive or pertinent negative responses have been documented in the HPI. ROS Other: All systems not noted in ROS Statement are negative. Past Medical History Past Medical History: Asthma, Coronary Artery Disease (CAD), Hyperlipidemia, Hypertension, Osteoarthritis (OA), Thyroid Disorder Additional Past Medical History / Comment(s): heart murmer, "a lot of burping", "small gallstone", polymyalgia rheumatica, urinary leakage,. COVID 05/16 History of Any Multi-Drug Resistant Organisms: None Reported Past Surgical History: AICD, Appendectomy, Heart Catheterization With Stent, Pacemaker Additional Past Surgical History / Comment(s): two cardiac stents, left oophorectomy, left fallopian tube Past Anesthesia/Blood Transfusion Reactions: Previous Problems w/ Anesthesia Additional Past Anesthesia/Blood Transfusion Reaction / Comment(s): got blood transfusion at age 19- got a rash Date of Last Stent Placement:: 2015 Type of Cardiac Device: Permanent Pacemaker, AICD Device Placement Date:: 2015 Past Psychological History: Anxiety Smoking Status: Never smoker Past Alcohol Use History: Occasional Past Drug Use History: None Reported - Past Family History Father Family Medical History: Cancer Brother(s) Family Medical History: Cancer General Exam Limitations: no limitations General appearance: alert, in no apparent distress Head exam: Present: atraumatic, normocephalic, normal inspection Eye exam: Present: normal appearance, EOMI Neck exam: Present: normal inspection, full ROM Respiratory exam: Present: normal lung sounds bilaterally. Absent: respiratory distress, wheezes, rales, rhonchi, stridor Cardiovascular Exam: Present: regular rate, normal rhythm, normal heart sounds. Absent: systolic murmur, diastolic murmur, rubs, gallop, clicks GI/Abdominal exam: Present: soft. Absent: distended, tenderness, guarding, rebound, rigid Neurological exam: Present: alert, oriented X3, CN II-XII intact Psychiatric exam: Present: normal affect, normal mood Skin exam: Present: warm, dry, intact, normal color. Absent: rash Course Vital Signs 01/26/23 01/26/23 01/27/23 20:55 21:50 00:28 Temperature 98.1 F 98.4 F Pulse Rate 100 93 78 Respiratory 20 18 18 Rate Blood Pressure 157/87 147/81 144/80 O2 Sat by Pulse 95 96 95 Oximetry Medical Decision Making - Medical Decision Making Was pt. sent in by a medical professional or institution (, PA, SANE RN, urgent care, hospital, or half-way...) When possible be specific @ -No Did you speak to anyone other than the patient for history (EMS, parent, family, police, friend...)? What history was obtained from this source @ -No Did you review nursing and triage notes (agree or disagree)? Why? @ -I reviewed and agree with nursing and triage notes Were old charts reviewed (outside hosp., previous admission, EMS record, old EKG, old radiological studies, urgent care reports/EKG's, half-way records)? Report findings @ -No old charts were reviewed Differential Diagnosis (chest pain, altered mental status, abdominal pain women, abdominal pain men, vaginal bleeding, weakness, fever, dyspnea, syncope, headache, dizziness, GI bleed, back pain, seizure, CVA, palpatations, mental health, musculoskeletal)? @ -MDM Differential Abdominal Pain Women: Appendicitis, Cholecystitis, diverticulosis, ischemic bowel, pancreatitis, hepatitis, UTI, gastroenteritis, AAA, incarcerated hernia, bowel obstruction, constipation, inflammatory bowel, hepatitis, peptic ulcer disease, splenic infarction, perforated viscus, vulvitis, ovarian torsion, PID, kidney stone, placenta abruption... This is not meant to be an all-inclusive list EKG interpreted by me (3pts min.). @ -As above X-rays interpreted by me (1pt min.). @ -None done CT interpreted by me (1pt min.). @ -None done U/S interpreted by me (1pt. min.). @ -None done What testing was considered but not performed or refused? (CT, X-rays, U/S, labs)? Why? @ -None What meds were considered but not given or refused? Why? @ -None Did you discuss the management of the patient with other professionals (professionals i.e. Dr., PA, SANE RN, lab, RT, psych nurse, social contact worker, java scala developer, te acher, parachute officer, home health care case manager)? Give summary @ -No Was smoking cessation discussed for >3mins.? @ -No Was critical care preformed (if so, how long)? @ -No Were there social determinants of health that impacted care today? How? (Homelessness, low income, unemployed, alcoholism, drug addiction, transportation, low edu. Level, literacy, decrease access to med. care, half-way, rehab)? @ -No Was there de-escalation of care discussed even if they declined (Discuss DNR or withdrawal of care, Hospice)? DNR status @ -No What co-morbidities impacted this encounter? (DM, HTN, Smoking, COPD, CAD, Cancer, CVA, ARF, Chemo, Hep., AIDS, mental health diagnosis, sleep apnea, morbid obesity)? @ -None Was patient admitted / discharged? Hospital course, mention meds given and rou te, prescriptions, significant lab abnormalities, going to OR and other pertinent info. @ -77-year-old female presenting with chief complaint of abdominal pain. Patient states she is experiencing spasming in the suprapubic region. Also admits to diarrhea. His examination is conducted. WBC 15.6. Urine shows moderate leukocytes with 20 WBCs. Patient will be treated for UTI with Keflex. She is educated on today's findings and treatment plan. Follow-up with PCP. Report back to ER with any new or worsening symptoms. Discussed return parameters and answered all questions. Patient conveyed verbal understanding and agreed to the plan. I discussed this case in detail with my attending Dr. Burleson Undiagnosed new problem with uncertain prognosis? @ -No Drug Therapy requiring intensive monitoring for toxicity (Heparin, Nitro, Insulin, Cardizem)? @ -No Were any procedures done? @ -No Diagnosis/symptom? @ -UTI Acute, or Chronic, or Acute on Chronic? @ -Acute Uncomplicated (without systemic symptoms) or Complicated (systemic symptoms)? @ -Uncomplicated Side effects of treatment? @ -No Exacerbation, Progression, or Severe Exacerbation? @ -No Poses a threat to life or bodily function? How? (Chest pain, USA, ID, pneumonia, PE, COPD, DKA, ARF, appy, cholecystitis, CVA, Diverticulitis, Homicidal, Suicidal, threat to staff... and all critical care pts) @ -No - Lab Data Result diagrams: 01/26/23 21:29 01/26/23 21:29 Lab Results 01/26/23 01/26/23 01/26/23 Range/Units 21:29 21:29 21:29 WBC 15.6 H (3.8-10.6) k/uL RBC 5.21 (3.80-5.40) m/uL Hgb 14.5 (11.4-16.0) gm/dL Hct 44.3 (34.0-46.0) % MCV 85.1 (80.0-100.0) fL MCH 27.8 (25.0-35.0) pg MCHC 32.7 (31.0-37.0) g/dL RDW 14.5 (11.5-15.5) % Plt Count 245 (150-450) k/uL MPV 7.7 Neutrophils % 77 % Lymphocytes % 11 % Monocytes % 6 % Eosinophils % 4 % Basophils % 0 % Neutrophils # 11.9 H (1.3-7.7) k/uL Lymphocytes # 1.8 (1.0-4.8) k/uL Monocytes # 1.0 (0-1.0) k/uL Eosinophils # 0.7 (0-0.7) k/uL Basophils # 0.0 (0-0.2) k/uL Sodium 140 (137-145) mmol/L Potassium 4.1 (3.5-5.1) mmol/L Chloride 107 (98-107) mmol/L Carbon Dioxide 22 (22-30) mmol/L Anion Gap 11 mmol/L BUN 16 (7-17) mg/dL Creatinine 0.82 (0.52-1.04) mg/dL Est GFR (CKD-EPI)AfAm 79 (>60 ml/min/1.73 sqM) Est GFR (CKD-EPI)NonAf 69 (>60 ml/min/1.73 sqM) Glucose 111 H (74-99) mg/dL Plasma Lactic Acid Gabriel 1.5 (0.7-2.0) mmol/L Calcium 9.7 (8.4-10.2) mg/dL Total Bilirubin 0.6 (0.2-1.3) mg/dL AST 45 H (14-36) U/L ALT 18 (4-34) U/L Alkaline Phosphatase 104 (38-126) U/L Total Protein 8.5 H (6.3-8.2) g/dL Albumin 4.5 (3.5-5.0) g/dL Urine Color Urine Appearance (Clear) Urine pH (5.0-8.0) Ur Specific Leary (1.001-1.035) Urine Protein (Negative) Urine Glucose (UA) (Negative) Urine Ketones (Negative) Urine Blood (Negative) Urine Nitrite (Negative) Urine Bilirubin (Negative) Urine Urobilinogen (<2.0) mg/dL Ur Leukocyte Esterase (Negative) Urine RBC (0-5) /hpf Urine WBC (0-5) /hpf Ur Squamous Epith Cells (0-4) /hpf Urine Bacteria (None) /hpf 01/26/23 Range/Units 22:58 WBC (3.8-10.6) k/uL RBC (3.80-5.40) m/uL Hgb (11.4-16.0) gm/dL Hct (34.0-46.0) % MCV (80.0-100.0) fL MCH (25.0-35.0) pg MCHC (31.0-37.0) g/dL RDW (11.5-15.5) % Plt Count (150-450) k/uL MPV Neutrophils % % Lymphocytes % % Monocytes % % Eosinophils % % Basophils % % Neutrophils # (1.3-7.7) k/uL Lymphocytes # (1.0-4.8) k/uL Monocytes # (0-1.0) k/uL Eosinophils # (0-0.7) k/uL Basophils # (0-0.2) k/uL Sodium (137-145) mmol/L Potassium (3.5-5.1) mmol/L Chloride (98-107) mmol/L Carbon Dioxide (22-30) mmol/L Anion Gap mmol/L BUN (7-17) mg/dL Creatinine (0.52-1.04) mg/dL Est GFR (CKD-EPI)AfAm (>60 ml/min/1.73 sqM) Est GFR (CKD-EPI)NonAf (>60 ml/min/1.73 sqM) Glucose (74-99) mg/dL Plasma Lactic Acid Gabriel (0.7-2.0) mmol/L Calcium (8.4-10.2) mg/dL Total Bilirubin (0.2-1.3) mg/dL AST (14-36) U/L ALT (4-34) U/L Alkaline Phosphatase (38-126) U/L Total Protein (6.3-8.2) g/dL Albumin (3.5-5.0) g/dL Urine Color Colorless Urine Appearance Clear (Clear) Urine pH 5.5 (5.0-8.0) Ur Specific Leary 1.008 (1.001-1.035) Urine Protein Negative (Negative) Urine Glucose (UA) Negative (Negative) Urine Ketones Negative (Negative) Urine Blood Trace H (Negative) Urine Nitrite Negative (Negative) Urine Bilirubin Negative (Negative) Urine Urobilinogen <2.0 (<2.0) mg/dL Ur Leukocyte Esterase Moderate H (Negative) Urine RBC 1 (0-5) /hpf Urine WBC 20 H (0-5) /hpf Ur Squamous Epith Cells <1 (0-4) /hpf Urine Bacteria Rare H (None) /hpf Disposition Clinical Impression: UTI (urinary tract infection) Disposition: HOME SELF-CARE Condition: Good Instructions (If sedation given, give patient instructions): Urinary Tract Infection in Women (ED) Additional Instructions: Follow-up with PCP. Report back to ER with any new or worsening symptoms. Take medication as prescribed. Take Motrin and Tylenol as needed for pain control. Prescriptions: Cephalexin [Keflex] 500 mg PO Q12HR 7 Days #14 cap Is patient prescribed a controlled substance at d/c from ED?: No Referrals: Adeel Johnson DO [Primary Care Provider] - 1-2 days Time of Disposition: 23:53
[2023-01-26 21:46] LABS: ALT 18 U/L (4-34); AST 45 U/L (14-36); African American GFR (CKD) 79 (>60 ml/min/1.73 sqM); Albumin 4.5 g/dL (3.5-5.0); Alkaline Phosphatase 104 U/L (38-126); Anion Gap 11 mmol/L; Blood Urea Nitrogen 16 mg/dL (7-17); Calcium 9.7 mg/dL (8.4-10.2); Carbon Dioxide 22 mmol/L (22-30); Chloride 107 mmol/L (98-107); Glucose 111 mg/dL (74-99); Non-African American GFR(CKD) 69 (>60 ml/min/1.73 sqM); Potassium 4.1 mmol/L (3.5-5.1); Sodium 140 mmol/L (137-145); Total Bilirubin 0.6 mg/dL (0.2-1.3); Total Protein 8.5 g/dL (6.3-8.2)
[2023-01-26 21:51] VITALS: RESP 18
[2023-01-26 23:29] LABS: Appearance,Urine Clear (Clear); Bacteria,Urine Rare /hpf; Bilirubin,Urine Negative (Negative); Blood,Urine Trace (Negative); Color,Urine Colorless; Glucose,Urine (UA) Negative (Negative); Ketones,Urine Negative (Negative); Leukocyte Esterase,Urine Moderate (Negative); Nitrite,Urine Negative (Negative); PH, Urine 5.5 (5.0-8.0); Protein,Urine Negative (Negative); RBC,Urine 1 /hpf (0-5); Specific Gravity,Urine 1.008 (1.001-1.035); Squamous Epithelial Cell,Urine <1 /hpf (0-4); Urobilinogen,Urine <2.0 mg/dL (<2.0); WBC,Urine 20 /hpf (0-5)
[2023-01-26] MEDS ORDERED: CEPHALEXIN 500 MG CAP PO STA (23:52)
[2023-01-26] MEDS ORDERED: IBUPROFEN 400 MG TAB PO STA (23:53)
[2023-01-27] MEDS ORDERED: KETOROLAC 15 MG/ML 1 ML VIAL IVP STA (00:09)
[2023-01-27] MEDS ORDERED: CEPHALEXIN 500MG STARTER PACK 4 CAP BTL PO STA (00:21)
[2023-01-27 00:34] VITALS: BP 144/80; PULSE 78; TEMP 98.4
== END 2023-01-27 00:34 | disposition home or self-care (01) ==
LOC: EC 20:43
DX: N39.0 Urinary tract infection, site not specified (principal); I10 Essential (primary) hypertension; I25.10 Atherosclerotic heart disease of native coronary artery without angina pectoris; J45.909 Unspecified asthma, uncomplicated; E78.5 Hyperlipidemia, unspecified; E07.9 Disorder of thyroid, unspecified; Z79.890 Hormone replacement therapy; Z79.82 Long term (current) use of aspirin; Z79.51 Long term (current) use of inhaled steroids; Z79.899 Other long term (current) drug therapy; Z88.5 Allergy status to narcotic agent; Z90.49 Acquired absence of other specified parts of digestive tract; Z90.721 Acquired absence of ovaries, unilateral; Z95.5 Presence of coronary angioplasty implant and graft
CPT/HCPCS: 36415; 80053; 83605; 85025; 81001; 87086; 99284; 96374; 96361; J1885

== ENCOUNTER → 2023-10-05 | Outpatient (CLI) | payer MEDICARE | END | disposition home or self-care (01) | LOC: LABWHC1 10:15 | PROVIDERS: ATTEND Internal Medicine Endocrinology, Diabetes & Metabolism | DX: E03.8 Other specified hypothyroidism (principal) | CPT/HCPCS: 36415; 84443 ==

== ENCOUNTER → 2023-12-05 | Outpatient (CLI) | payer MEDICARE ==
--- NOTE | 2023-12-05 12:22 | XR ---
EXAMINATION TYPE: XR abdomen 1V DATE OF EXAM: 12/05/2023 COMPARISON: 10/19/2022 CT INDICATION: Abdominal pain constipation TECHNIQUE: Single view abdomen FINDINGS: There is a nonspecific bowel gas pattern. Small amount of fecal debris is within the colon. No dilate d loops of colon are evident. Significant fecal retention not evident. Psoas margins are normal. No organomegaly is present. There is a large 2.9 x 3.6 cm calcification right upper quadrant "gallstone on CT IMPRESSION: 1. Large gallstone. 2. No significant fecal retention.
== END | disposition home or self-care (01) ==
LOC: RADXRYALE 11:58
PROVIDERS: ATTEND Physician Assistant
DX: K80.20 Calculus of gallbladder without cholecystitis without obstruction (principal)
CPT/HCPCS: 74018

== ENCOUNTER → 2024-08-12 | Outpatient (CLI) | payer MEDICARE ==
--- NOTE | 2024-08-13 10:28 | MM ---
Reason for Exam: Screening (asymptomatic). Last mammogram was performed 1 year(s) and 1 month(s) ago. Patient History: Menarche at age 13. First Full-Term at age 17. Left ovary removed at age 17. Postmenopausal. Risk Values: Darling 5 year model risk: 1.1%. NCI Lifetime model risk: 1.7%. Prior Study Comparison: 06/17/2000 Bilateral Screening Mammogram, [facility]. 06/18/2001 Bilateral Screening Mammogram, [facility] 07/01/2001 Left Special View Mammogram, [facility]. 06/12/2022 Bilateral Screening Mammogram, [facility]. 07/25/2023 Bilateral Screening Mammogram, [facility]. Tissue Density: The breasts are heterogeneously dense, which may obscure small masses. Findings: Analyzed By CAD. There are benign-appearing round and vascular calcifications bilaterally redemonstrated. There is worsening distortion identified in the biopsy clip in the left breast middle depth slightly outer aspect. Overall Assessment: Incomplete: need additional imaging evaluation, BI-RAD 0 Management: Diagnostic Mammogram of the left breast. Diagnostic Breast Ultrasound of the left breast. Need patient back for further diagnostic imaging and more appropriate history, clear change in mammogram with new biopsy clip from 2022 to 2023. Need to know more information on procedure performed. Patient should continue monthly self-breast exams. A clinical breast exam by your physician is recommended on an annual basis. This exam should not preclude additional follow-up of suspicious palpable abnormalities. Note on Darling scores and lifetime risk: 1. A Darling score greater than 3% is considered moderate risk. If this is the case, consider specialist referral to assess eligibility for a risk reducing agent. 2. If overall lifetime risk for the development of breast cancer is 20% or higher, the patient may qualify for future screening with alternating mammogram and breast MRI. [facility], , 08/13/2024 10:23 AM. Electronically signed and approved by: Car Fisher M.D.
== END | disposition home or self-care (01) ==
LOC: RADMAMWWP 15:08
PROVIDERS: ATTEND Family Medicine
DX: Z12.31 Encounter for screening mammogram for malignant neoplasm of breast (principal); R92.333 Mammographic heterogeneous density, bilateral breasts; Z78.0 Asymptomatic menopausal state
CPT/HCPCS: 77063; 77067

== ENCOUNTER → 2024-08-17 | Outpatient (CLI) | payer MEDICARE ==
--- NOTE | 2024-08-17 13:15 | MM ---
Reason for Exam: Additional evaluation requested from abnormal screening. Last screening mammogram was performed less than 1 month ago. Patient History: Menarche at age 13. First Full-Term at age 17. Left ovary removed at age 17. Postmenopausal. Patient has history of breast feeding. Risk Values: Darling 5 year model risk: 1.1%. NCI Lifetime model risk: 1.7%. Prior Study Comparison: 06/12/2022 Bilateral Screening Mammogram, [facility]. 07/25/2023 Bilateral Screening Mammogram, [facility]. 08/12/2024 Bilateral MG 3D screening mammo w/cad, [facility]. Tissue Density: Left: The breasts are heterogeneously dense, which may obscure small masses. Findings: Analyzed By CAD. An area of spiculated architectural distortion in the central outer left breast. A surgical clip in the region. There are vascular appearing calcifications. Overall Assessment: Incomplete: need additional imaging evaluation, BI-RAD 0 Management: Diagnostic Breast Ultrasound of the left breast. . Results were given to the patient verbally at the time of exam. Patient should continue monthly self-breast exams. A clinical breast exam by your physician is recommended on an annual basis. This exam should not preclude additional follow-up of suspicious palpable abnormalities. Note on Darling scores and lifetime risk: 1. A Darling score greater than 3% is considered moderate risk. If this is the case, consider specialist referral to assess eligibility for a risk reducing agent. 2. If overall lifetime risk for the development of breast cancer is 20% or higher, the patient may qualify for future screening with alternating mammogram and breast MRI. [facility], , 08/17/2024 1:11 PM. Electronically signed and approved by: Artemio Gibson M.D. Radiologis
--- NOTE | 2024-08-17 13:32 | USB ---
Reason for Exam: Additional evaluation requested from abnormal screening. Patient History: Menarche at age 13. First Full-Term at age 17. Left ovary removed at age 17. Postmenopausal. Patient has history of breast feeding. Risk Values: Darling 5 year model risk: 1.1%. NCI Lifetime model risk: 1.7%. Technique: Method: Targeted. Prior Study Comparison: 06/12/2022 Bilateral Screening Mammogram, [facility]. 07/25/2023 Bilateral Screening Mammogram, [facility]. 08/12/2024 Bilateral MG 3D screening mammo w/cad, [facility]. Findings: The upper outer quadrant of the left breast, the axilla of the left breast and the retroareolar of the left breast were scanned. A a targeted ultrasound of the 3:00 position, axilla retro-areolar region were reviewed. There is a spiculated mass 2.1 x 1.7 cm at the 3:00 position of the left breast. Overall Assessment: Suspicious, BI-RAD 4 Management: Ultrasound Core Biopsy of the left breast. A clinical breast exam by your physician is recommended on an annual basis and results should be correlated with mammographic findings. This exam should not preclude additional follow-up of suspicious palpable abnormalities. Results were given to the patient verbally at the time of exam. [facility], , 08/17/2024 1:30 PM. Electronically signed and approved by: Artemio Gibson M.D. Radiologis
== END | disposition home or self-care (01) ==
LOC: RADMAMWWP 12:32
PROVIDERS: ATTEND Family Medicine
DX: R92.8 Other abnormal and inconclusive findings on diagnostic imaging of breast (principal); R92.332 Mammographic heterogeneous density, left breast; Z78.0 Asymptomatic menopausal state
CPT/HCPCS: 77061; 77065

== ENCOUNTER 2024-08-22 14:32 | Observation (INO) | payer MEDICARE ==
--- NOTE | 2024-08-22 15:08 | ED ---
Weakness HPI - General Chief complaint: Dizziness Stated complaint: Weakness Time Seen by Provider: 08/22/24 14:41 Source: patient, RN notes reviewed Mode of arrival: EMS Limitations: no limitations - History of Present Illness Initial comments: This is an 79-year-old female who presents to the emergency department for weakness and an episode of chest pain. Patient states that around 1 PM she was talking to her and developed sudden pain in her chest that radiated up into her neck. Describes this as a squeezing-like sensation. This lasted about 10 minutes and then resolved on its own. Afterwards she started feeling very weak and nauseous. The pain has not returned, however she continues to feel very weak and fatigued. EMS gave her Zofran which was helpful for the nausea. She does have a history of 2 stents, a defibrillator, and pacemaker. The stents were put in over 10 years ago at [place]. However, she was not experiencing c hest pain at that time and has not experienced chest pain like this in the past. MD Complaint: generalized weakness - Related Data Home Medications Medication Instructions Recorded Confirmed Aspirin 81 mg PO DAILY 01/11/14 08/22/24 Fluticasone Propionate [Flonase] 1 spray EA NOSTRIL BID 01/11/14 08/22/24 Montelukast [Singulair] 10 mg PO HS 01/11/14 08/22/24 Fluticasone Propion/Salmeterol 1 puff INHALATION RT-BID 11/19/18 08/22/24 [Advair 100-50 Diskus] Rosuvastatin [Crestor] 10 mg PO DIRECTED 11/19/18 08/22/24 Levothyroxine Sodium [Synthroid] 62.5 mcg PO DAILY 10/19/22 08/22/24 Sacubitril/Valsartan [Entresto 24 1 tab PO BID 10/19/22 08/22/24 mg-26 mg Tablet] Cholecalciferol [Vitamin D3 (125 125 mcg PO DAILY 08/22/24 08/22/24 Mcg = 5000 Iu)] Clobetasol Propionate [Clobex 1 applic TOPICAL MOWE 08/22/24 08/22/24 0.05% Soln] Co Q-10(Unknown Dose) 1 tab PO DAILY 08/22/24 08/22/24 Estrogens, Conjugated Cream 1 applic VAGINAL DIRECTED 08/22/24 08/22/24 [Premarin Vaginal Cream] L.acidoph,Paracasei, B.lactis 1 cap PO DAILY 08/22/24 08/22/24 [Probiotic] Multivitamins, Thera [Multivitamin 1 tab PO DAILY 08/22/24 08/22/24 (formulary)] carvediloL [Coreg] 3.125 mg PO DIRECTED 08/22/24 08/22/24 Allergies Allergy/AdvReac Type Severity Reaction Status Date / Time codeine AdvReac Abdominal Verified 08/22/24 20:02 Pain Review of Systems ROS Statement: Those systems with pertinent positive or pertinent negative responses have been documented in the HPI. ROS Other: All systems not noted in ROS Statement are negative. Past Medical History Past Medical History: Asthma, Coronary Artery Disease (CAD), Hyperlipidemia, Hypertension, Osteoarthritis (OA), Thyroid Disorder Additional Past Medical History / Comment(s): heart murmer, "a lot of burping", "small gallstone", polymyalgia rheumatica, urinary leakage,. COVID 05/16 History of Any Multi-Drug Resistant Organisms: None Reported Past Surgical History: AICD, Appendectomy, Heart Catheterization With Stent, Pacemaker Additional Past Surgical History / Comment(s): two cardiac stents, left oophorectomy, left fallopian tube AICD Past Anesthesia/Blood Transfusion Reactions: Previous Problems w/ Anesthesia Additional Past Anesthesia/Blood Transfusion Reaction / Comment(s): got blood transfusion at age 19- got a rash Date of Last Stent Placement:: 2015 Type of Cardiac Device: Permanent Pacemaker, AICD Device Placement Date:: 2015 Past Psychological History: Anxiety Smoking Status: Never smoker Past Alcohol Use History: Occasional Past Drug Use History: None Reported - Past Family History Father Family Medical History: Cancer Brother(s) Family Medical History: Cancer General Exam Limitations: no limitations General appearance: alert, in no apparent distress Head exam: Present: atraumatic, normocephalic, normal inspection Respiratory exam: Present: normal lung sounds bilaterally. Absent: respiratory distress, wheezes, rales, rhonchi, stridor Cardiovascular Exam: Present: regular rate, normal rhythm Neurological exam: Present: alert, oriented X3, CN II-XII intact Psychiatric exam: Present: normal affect, normal mood Skin exam: Present: warm, dry, intact, normal color. Absent: rash Course Vital Signs 08/22/24 08/22/24 08/22/24 14:47 16:28 19:15 Temperature 98 F Pulse Rate 73 86 80 Respiratory 20 18 18 Rate Blood Pressure 152/82 155/86 148/80 O2 Sat by Pulse 97 98 98 Oximetry Medical Decision Making - Medical Decision Making This is an 79-year-old female who presents to the emergency department for weakness and an episode of chest pain. Was pt. sent in by a medical professional or institution? @ -No Did you speak to anyone other than the patient for history? @ -No Did you review nursing and triage notes? @ -Yes, and I agree, it is accurate with regards to the patient's symptoms. Were old charts reviewed? @ -No Differential Diagnosis? @ -Differential Chest Pain: Stable Angina, Unstable Angina, STEMI, NSTEMI Aortic Dissection, Pneumothorax, Musculoskeletal, Esophageal Spasm GERD, Cholecystitis, Pancreatitis, Zoster, this is not meant to be an all-inclusive list. EKG interpreted by me (3pts min.)? @ -EKG interpreted by me demonstrating the following: Electronic ventricular pacemaker. Ventricular rate 74 bpm, AL interval 167 ms, QRS duration 166 ms, QTc 431 ms. X-rays interpreted by me (1pt min.)? @ -Chest x-ray obtained, my interpretation identifies no localized consolidations or infiltrates. CT interpreted by me (1pt min.)? @ -Not obtained U/S interpreted by me (1pt. min.)? @ -Not obtained What testing was considered but not performed? (CT, X-rays, U/S, labs)? Why? @ -None What meds were considered but not given? Why? @ -None Did you discuss the management of the patient with other professionals? @ -Yes, Dr. Padgett, who accepts the patient for admission Did you reconcile home meds? @ -Yes Was smoking cessation discussed for >3mins.? @ -No Was critical care preformed (if so, how long)? @ -No Were there social determinants of health that impacted care today? How? (Homelessness, low income, unemployed, alcoholism, drug addiction, transportation, low edu. Level, literacy, decrease access to med. care, fci, rehab)? @ -No Was there de-escalation of care discussed even if they declined? (Discuss DNR or withdrawal of care, Hospice)? @ -No What co-morbidities impacted this encounter? (DM, HTN, Smoking, COPD, CAD, Cancer, CVA, Hep., AIDS, mental health diagnosis, sleep apnea, morbid obesity)? @ -CAD Was patient admitted / discharged? @ -Admitted. Lab work obtained with an initial troponin of <0.012. Discussed with the patient the options of cardiac observation versus repeat troponin at the 3-hour rahat. Patient initially requested to proceed with a repeat troponin. Repeat troponin returned at 0.029. While this is negative, it is still trending upwards. With this finding we did advise admission for cardiac observation and continued serial troponins, especially with her cardiac history. Patient is in agreement with this. 324 mg of aspirin administered. Chest x- ray reveals no acute process. Patient admitted to medicine for chest pain with serial troponins and consult was placed for cardiology. Case discussed with ED attending Dr. Majano. Undiagnosed new problem with uncertain prognosis? @ -None Drug Therapy requiring intensive monitoring for toxicity (Heparin, Nitro, Insulin, Cardizem)? @ -None Were any procedures done? @ -None Diagnosis/symptom? @ -Chest pain Acute, or Chronic, or Acute on Chronic? @ -Acute Uncomplicated (without systemic symptoms) or Complicated (systemic symptoms)? @ -Complicated Side effects of treatment? @ -None Exacerbation, Progression, or Severe Exacerbation] @ -Not applicable Poses a threat to life or bodily function? @ -Yes, if due to ACS can be life-threatening. - Lab Data Result diagrams: 08/22/24 15:03 08/22/24 15:03 Lab Results 08/22/24 08/22/24 08/22/24 Range/Units 15:03 15:03 15:03 WBC 7.8 (3.8-10.6) k/uL RBC 4.86 (3.80-5.40) m/uL Hgb 13.6 (11.4-16.0) gm/dL Hct 42.3 (34.0-46.0) % MCV 87.0 (80.0-100.0) fL MCH 27.9 (25.0-35.0) pg MCHC 32.1 (31.0-37.0) g/dL RDW 14.2 (11.5-15.5) % Plt Count 217 (150-450) k/uL MPV 7.2 Neutrophils % 67 % Lymphocytes % 21 % Monocytes % 7 % Eosinophils % 3 % Basophils % 1 % Neutrophils # 5.2 (1.3-7.7) k/uL Lymphocytes # 1.6 (1.0-4.8) k/uL Monocytes # 0.6 (0-1.0) k/uL Eosinophils # 0.2 (0-0.7) k/uL Basophils # 0.0 (0-0.2) k/uL PT 10.9 (10.0-12.5) sec INR 1.0 (<1.2) APTT 25.7 (22.0-30.0) sec Sodium (137-145) mmol/L Potassium (3.5-5.1) mmol/L Chloride (98-107) mmol/L Carbon Dioxide (22-30) mmol/L Anion Gap mmol/L BUN (7-17) mg/dL Creatinine (0.52-1.04) mg/dL Est GFR (CKD-EPI)AfAm (>60 ml/min/1.73 sqM) Est GFR (CKD-EPI)NonAf (>60 ml/min/1.73 sqM) Glucose (74-99) mg/dL Calcium (8.4-10.2) mg/dL Magnesium (1.6-2.3) mg/dL Total Bilirubin (0.2-1.3) mg/dL AST (14-36) U/L ALT (4-34) U/L Alkaline Phosphatase (38-126) U/L Troponin I (0.000-0.034) ng/mL Total Protein (6.3-8.2) g/dL Albumin (3.5-5.0) g/dL Urine Color Colorless Urine Appearance Clear (Clear) Urine pH 6.5 (5.0-8.0) Ur Specific [place] 1.001 (1.001-1.035) Urine Protein Negative (Negative) Urine Glucose (UA) Negative (Negative) Urine Ketones Negative (Negative) Urine Blood Negative (Negative) Urine Nitrite Negative (Negative) Urine Bilirubin Negative (Negative) Urine Urobilinogen <2.0 (<2.0) mg/dL Ur Leukocyte Esterase Negative (Negative) 08/22/24 08/22/24 08/22/24 Range/Units 15:03 15:03 18:00 WBC (3.8-10.6) k/uL RBC (3.80-5.40) m/uL Hgb (11.4-16.0) gm/dL Hct (34.0-46.0) % MCV (80.0-100.0) fL MCH (25.0-35.0) pg MCHC (31.0-37.0) g/dL RDW (11.5-15.5) % Plt Count (150-450) k/uL MPV Neutrophils % % Lymphocytes % % Monocytes % % Eosinophils % % Basophils % % Neutrophils # (1.3-7.7) k/uL Lymphocytes # (1.0-4.8) k/uL Monocytes # (0-1.0) k/uL Eosinophils # (0-0.7) k/uL Basophils # (0-0.2) k/uL PT (10.0-12.5) sec INR (<1.2) APTT (22.0-30.0) sec Sodium 141 (137-145) mmol/L Potassium 4.0 (3.5-5.1) mmol/L Chloride 109 H (98-107) mmol/L Carbon Dioxide 25 (22-30) mmol/L Anion Gap 7 mmol/L BUN 12 (7-17) mg/dL Creatinine 0.75 (0.52-1.04) mg/dL Est GFR (CKD-EPI)AfAm 87 (>60 ml/min/1.73 sqM) Est GFR (CKD-EPI)NonAf 76 (>60 ml/min/1.73 sqM) Glucose 91 (74-99) mg/dL Calcium 9.0 (8.4-10.2) mg/dL Magnesium 1.9 (1.6-2.3) mg/dL Total Bilirubin 0.6 (0.2-1.3) mg/dL AST 31 (14-36) U/L ALT 20 (4-34) U/L Alkaline Phosphatase 67 (38-126) U/L Troponin I <0.012 0.029 (0.000-0.034) ng/mL Total Protein 7.1 (6.3-8.2) g/dL Albumin 4.0 (3.5-5.0) g/dL Urine Color Urine Appearance (Clear) Urine pH (5.0-8.0) Ur Specific [place] (1.001-1.035) Urine Protein (Negative) Urine Glucose (UA) (Negative) Urine Ketones (Negative) Urine Blood (Negative) Urine Nitrite (Negative) Urine Bilirubin (Negative) Urine Urobilinogen (<2.0) mg/dL Ur Leukocyte Esterase (Negative) - Radiology Data Radiology results: report reviewed, image reviewed Disposition Clinical Impression: Chest pain Disposition: ADMITTED IP TO THIS HOSP
[2024-08-22] MEDS: SODIUM CHLORIDE 0.9% 500 ML 500 ML IV ONE (15:09)
[2024-08-22 15:14] LABS: Basophils % (A) 1 %; Eosinophils # (A) 0.2 k/uL (0-0.7); Eosinophils % (A) 3 %; HCT 42.3 % (34.0-46.0); HGB 13.6 gm/dL (11.4-16.0); Lymphocytes # (A) 1.6 k/uL (1.0-4.8); Lymphocytes % (A) 21 %; MCH 27.9 pg (25.0-35.0); MCHC 32.1 g/dL (31.0-37.0); Mean Platelet Volume 7.2; Monocytes # (A) 0.6 k/uL (0-1.0); Monocytes % (A) 7 %; Neutrophils # (A) 5.2 k/uL (1.3-7.7); Neutrophils % (A) 67 %; Platelet Count 217 k/uL (150-450); RBC 4.86 m/uL (3.80-5.40); RDW 14.2 % (11.5-15.5); WBC 7.8 k/uL (3.8-10.6)
[2024-08-22 15:18] LABS: Appearance,Urine Clear (Clear); Bilirubin,Urine Negative (Negative); Blood,Urine Negative (Negative); Color,Urine Colorless; Glucose,Urine (UA) Negative (Negative); Ketones,Urine Negative (Negative); Leukocyte Esterase,Urine Negative (Negative); Nitrite,Urine Negative (Negative); PH, Urine 6.5 (5.0-8.0); Protein,Urine Negative (Negative); Specific Gravity,Urine 1.001 (1.001-1.035); Urobilinogen,Urine <2.0 mg/dL (<2.0)
[2024-08-22 15:23] LABS: Partial Thromboplastin Time 25.7 sec (22.0-30.0); Prothrombin Time 10.9 sec (10.0-12.5)
--- NOTE | 2024-08-22 15:24 | XR ---
EXAMINATION TYPE: XR chest 2V DATE OF EXAM: 08/22/2024 3:20 PM COMPARISON: 01/01/14 CLINICAL INDICATION: Female, 79 years old with history of Chest Pain: Shortness of breath TECHNIQUE: XR chest 2V views of the chest are obtained. FINDINGS: Scattered senescent parenchymal changes noted. Hyperinflation compatible with COPD. No evidence for infiltrate. No evidence for atelectasis. Heart size is stable. Mediastinal structures are stable and grossly unremarkable. No evidence for hilar prominence. Degenerative changes dorsal spine. IMPRESSION: 1. No evidence for acute pulmonary disease. [facility], , 08/22/2024 3:22 PM
[2024-08-22 15:29] LABS: ALT 20 U/L (4-34); AST 31 U/L (14-36); African American GFR (CKD) 87 (>60 ml/min/1.73 sqM); Alkaline Phosphatase 67 U/L (38-126); Anion Gap 7 mmol/L; Blood Urea Nitrogen 12 mg/dL (7-17); Carbon Dioxide 25 mmol/L (22-30); Chloride 109 mmol/L (98-107); Glucose 91 mg/dL (74-99); Magnesium 1.9 mg/dL (1.6-2.3); Non-African American GFR(CKD) 76 (>60 ml/min/1.73 sqM); Sodium 141 mmol/L (137-145); Total Bilirubin 0.6 mg/dL (0.2-1.3); Total Protein 7.1 g/dL (6.3-8.2)
[2024-08-22] MEDS ORDERED: HYDROcodone/APAP 5-325MG 1 EACH TAB PO PRN (18:49)
[2024-08-22] MEDS ORDERED: MORPHINE SULFATE 4 MG/ML SYRINGE IV PRN (18:49)
[2024-08-22] MEDS ORDERED: ONDANSETRON 4 MG/2 ML VIAL IVP PRN (18:49)
[2024-08-22] MEDS ORDERED: NALOXONE 0.4 MG/ML 1 ML VIAL IV PRN (18:49)
[2024-08-22] MEDS: ASPIRIN 81 MG PO STA (19:08)
[2024-08-22] MEDS: ESTROGENS, CONJUGATED 0.625 MG/GM VAGINAL CREAM 42.5 GM TUBE VAGINAL SCH (21:14)
[2024-08-22] MEDS ORDERED: HEPARIN SODIUM 1,000 UN/ML (10ML VL) IV PRN (22:19)
[2024-08-22] MEDS: HEPARIN SOD,PORK IN 0.45% NACL 25,000 UNIT in 0.45% NACL 1 250ML.BAG IV SCH (22:34)
[2024-08-22] MEDS: HEPARIN SODIUM 1,000 UN/ML (10ML VL) IV ONE (22:36)
[2024-08-22] MEDS: ATORVASTATIN 20 MG TAB PO SCH (22:49)
[2024-08-22] MEDS: carvediloL 3.125 MG TAB PO SCH (22:49)
[2024-08-22] MEDS: SACUBITRIL/VALSARTAN 24 MG-26 MG TABLET PO SCH (22:49)
[2024-08-22] MEDS: MONTELUKAST 10 MG TAB PO SCH (22:50)
[2024-08-22] MEDS: FLUTICASONE NASAL 50MCG/SPRAY 16GM BTL EA NOSTRIL SCH (22:50)
--- NOTE | 2024-08-22 23:32 | P.HPIM ---
History of Present Illness H&P Date: 08/22/24 Chief Complaint: chest pain Patient is a 79-year-old female with CAD status post stent x 2 AICD and pacemaker, hyperlipidemia, hypertension presenting with chest pain. Patient states that around 1 PM this afternoon, while outside talking to her , she felt a sudden pressure-like chest pain that radiated up to her neck. She states that the chest pain lasted for 10 minutes and resolved on its own. Denies any exacerbating or alleviating factors. Afterwards she suddenly felt weak and nauseous. During interview patient denied any chest pain. She states she feels weak and fatigued. She says she feels dizzy when laying flat or when she turns her head. Patient denies any fever, diaphoresis, headache, vision changes, shortness of breath, heart palpitations, abdominal pain, vomiting, urinary symptoms. EKG independent interpreted displaying electronic ventricular pacemaker, vent rate 74 bpm, QTc 431 MS T98.5 F, [place] 70, RR 17, BP 130/72, O2 saturation 96% on room air Review of systems: Pertinent positives and negatives as discussed in HPI, a complete review of systems was performed and all other systems are negative. Physical examination: Vital signs reviewed General: non toxic, no distress, appears at stated age, normal weight Derm: no unusual rashes/lesions, warm Head: atraumatic, normocephalic, symmetric Eyes: EOMI, anicteric sclera, pupils equal round reactive to light ENT: Nose and ears atraumatic Mouth: no lip lesion, mucus membranes moist Cardiovascular: S1S2 reg, no murmur, positive dorsalis pedis pulse bilateral, no edema Lungs: CTA bilateral, no rhonchi, no rales, no accessory muscle use Abdominal: soft, nontender to palpation, no guarding Ext: muscle strength 5 out of 5 in all 4 extremities grossly, no gross muscle atrophy Neuro: CN II-XI grossly intact, no gross focal neuro deficits Psych: Alert, oriented to person, place, and time Assessment/Plan: Patient is a 79-year-old female with CAD status post stent x 2, hyperlipidemia, hypertension presenting with chest pain. ED documentation reviewed. Discussed with patient. The patient is admitted with an anticipated less than 2 midnight stay for evaluation of acute chest pain. #. NSTEMI Type I versus type II EKG independent interpreted displaying electronic ventricular pacemaker, vent rate 74 bpm, QTc 431 MS Patient with history of cardiac stent x 2 Troponin <0.012, 0.029, 0.063, continue to trend Continue IV heparin Aspirin 81 mg p.o. daily Atorvastatin 10 mg p.o. at bedtime Lipid panel, TSH, A1c ordered Echocardiogram ordered Cardiac telemetry Cardiology consulted #. Ischemic cardiomyopathy s/p permanent pacemaker Continue Coreg 3.125 mg p.o. twice daily Continue Entresto 24 mg - 26 mg p.o. twice daily #. Hypothyroidism Continue with Synthroid 62.5 mcg p.o. daily #. History of asthma, not in acute exacerbation Continue Symbicort inhaler Continue Singulair 10 mg p.o. at bedtime F: N/A E: Replete electrolytes as needed N: Heart healthy diet A: Ambulatory baseline DVT prophylaxis: IV heparin CODE STATUS: Full code Anticipated discharge place: Pending clinical course Shaye Oliver MD PGY-1 IM Dictation was produced using [employer] dictation software. please excuse any grammatical, word or spelling errors. I have seen and evaluated the patient today. I Discussed the case with the resident and agree with the resident's findings I edited the assessment and plan as necessary as documented in the resident's note. Past Medical History Past Medical History: Asthma, Coronary Artery Disease (CAD), Hyperlipidemia, Hypertension, Osteoarthritis (OA), Thyroid Disorder Additional Past Medical History / Comment(s): heart murmer, "a lot of burping", "small gallstone", polymyalgia rheumatica, urinary leakage,. COVID 05/16 History of Any Multi-Drug Resistant Organisms: None Reported Past Surgical History: AICD, Appendectomy, Heart Catheterization With Stent, Pacemaker Additional Past Surgical History / Comment(s): two cardiac stents, left oophorectomy, left fallopian tube AICD Past Anesthesia/Blood Transfusion Reactions: Previous Problems w/ Anesthesia Additional Past Anesthesia/Blood Transfusion Reaction / Comment(s): got blood transfusion at age 19- got a rash Date of Last Stent Placement:: 2015 Type of Cardiac Device: Permanent Pacemaker, AICD Device Placement Date:: 2015 Past Psychological History: Anxiety Smoking Status: Never smoker Past Alcohol Use History: Occasional Past Drug Use History: None Reported - Past Family History Father Family Medical History: Cancer Additional Family Medical History / Comment(s): Lung cancer Brother(s) Family Medical History: Cancer Mother Family Medical History: Myocardial Infarction (IA) Additional Family Medical History / Comment(s): of IA at age 49. Medications and Allergies Home Medications Medication Instructions Recorded Confirmed Type Aspirin 81 mg PO DAILY 01/11/14 08/22/24 History Fluticasone Propionate [Flonase] 1 spray EA NOSTRIL BID 01/11/14 08/22/24 His tory Montelukast [Singulair] 10 mg PO HS 01/11/14 08/22/24 History Fluticasone Propion/Salmeterol 1 puff INHALATION RT-BID 11/19/18 08/22/24 History [Advair 100-50 Diskus] Rosuvastatin [Crestor] 10 mg PO DIRECTED 11/19/18 08/22/24 History Levothyroxine Sodium [Synthroid] 62.5 mcg PO DAILY 10/19/22 08/22/24 History Sacubitril/Valsartan [Entresto 24 1 tab PO BID 10/19/22 08/22/24 History mg-26 mg Tablet] Cholecalciferol [Vitamin D3 (125 125 mcg PO DAILY 08/22/24 08/22/24 History Mcg = 5000 Iu)] Clobetasol Propionate [Clobex 1 applic TOPICAL MOWE 08/22/24 08/22/24 History 0.05% Soln] Co Q-10(Unknown Dose) 1 tab PO DAILY 08/22/24 08/22/24 History Estrogens, Conjugated Cream 1 applic VAGINAL DIRECTED 08/22/24 08/22/24 History [Premarin Vaginal Cream] L.acidoph,Paracasei, B.lactis 1 cap PO DAILY 08/22/24 08/22/24 History [Probiotic] Multivitamins, Thera [Multivitamin 1 tab PO DAILY 08/22/24 08/22/24 History (formulary)] carvediloL [Coreg] 3.125 mg PO DIRECTED 08/22/24 08/22/24 History Allergies Allergy/AdvReac Type Severity Reaction Status Date / Time codeine AdvReac Abdominal Verified 08/22/24 20:02 Pain Physical Exam Vitals: Vital Signs Temp Pulse Resp BP Pulse Ox 08/22/24 19:15 80 18 148/80 98 08/22/24 16:28 86 18 155/86 98 03/29/25 14:47 98 F 73 20 152/82 97 Intake and Output 08/22/24 08/22/24 08/22/24 06:59 14:59 22:59 Other: Weight 63.503 kg Results CBC & Chem 7: 08/22/24 15:03 08/23/24 04:58 Labs: Abnormal Lab Results - Last 24 Hours (Table) 08/22/24 Range/Units 15:03 Chloride 109 H (98-107) mmol/L
[2024-08-23 05:38] LABS: African American GFR (CKD) 86 (>60 ml/min/1.73 sqM); Anion Gap 7 mmol/L; Blood Urea Nitrogen 10 mg/dL (7-17); Calcium 9.1 mg/dL (8.4-10.2); Carbon Dioxide 24 mmol/L (22-30); Chloride 108 mmol/L (98-107); Glucose 97 mg/dL (74-99); Non-African American GFR(CKD) 75 (>60 ml/min/1.73 sqM); Potassium 3.7 mmol/L (3.5-5.1); Sodium 139 mmol/L (137-145)
[2024-08-23] MEDS: ACETAMINOPHEN TAB 325 MG TAB PO PRN (05:38)
[2024-08-23 05:49] LABS: INR 1.1 (<1.2)
[2024-08-23 06:00] LABS: Partial Thromboplastin Time >200.0 sec (22.0-30.0)
[2024-08-23] MEDS: PANTOPRAZOLE 40 MG TABLET PO SCH (06:33)
[2024-08-23 08:08] VITALS: RESP 16; TEMP 97.9
[2024-08-23] MEDS: SYMBICORT 80-4.5 MCG INHALER INHALATION SCH (08:09)
[2024-08-23] MEDS ORDERED: PANTOPRAZOLE 40 MG/10 ML VIAL IV SCH (09:00)
[2024-08-23] MEDS ORDERED: CO Q10 PO SCH (09:00)
[2024-08-23 09:51] LABS: Basophils # (A) 0.04 X 10*3/uL (0.00-0.10); Basophils % (A) 0.6 %; Eosinophils # (A) 0.17 X 10*3/uL (0.04-0.35); Eosinophils % (A) 2.6 %; HCT 40.5 % (37.2-46.3); HGB 12.8 g/dL (12.0-15.0); Lymphocytes # (A) 1.87 X 10*3/uL (0.90-5.00); Lymphocytes % (A) 28.8 %; MCHC 31.6 g/dL (32.0-37.0); MCV 88.6 FL (80.0-97.0); Mean Platelet Volume 10.2 FL (9.5-12.2); Monocytes # (A) 0.74 X 10*3/uL (0.20-1.00); Monocytes % (A) 11.4 %; NRBC Per 100 WBC 0 X 10*3/uL (0.00-0.01); Neutrophils # (A) 3.66 X 10*3/uL (1.80-7.70); Neutrophils % (A) 56.3 %; Platelet Count 209 X 10*3/uL (140-440); RBC 4.57 X 10*6/uL (4.10-5.20); RDW 14.6 % (11.5-14.5)
[2024-08-23] MEDS: LEVOTHYROXINE 125 MCG TAB PO SCH (11:55)
[2024-08-23] MEDS: ASPIRIN 81 MG PO SCH (11:56)
[2024-08-23] MEDS: MULTIVITAMINS, THERA 1 EACH TAB PO SCH (11:56)
[2024-08-23] MEDS: CHOLECALCIFEROL 125 MCG (5000 IU) TABLET PO SCH (11:56)
[2024-08-23] MEDS: LACTOBACILLUS ACIDOPHILUS/PECT 1 EACH CAPSULE PO SCH (11:56)
--- NOTE | 2024-08-23 12:03 | P.PN ---
Subjective Progress Note Date: 08/23/24 Hospital Course: Patient is a 79-year-old female with CAD status post stent x 2 AICD and pacema ker, hyperlipidemia, hypertension presenting with chest pain. Patient states that around 1 PM this afternoon, while outside talking to her , she felt a sudden pressure-like chest pain that radiated up to her neck. She states that the chest pain lasted for 10 minutes and resolved on its own. Denies any exacerbating or alleviating factors. Afterwards she suddenly felt weak and nauseous. During interview patient denied any chest pain. She states she feels weak and fatigued. She says she feels dizzy when laying flat or when she turns her head. Patient denies any fever, diaphoresis, headache, vision changes, shortness of breath, heart palpitations, abdominal pain, vomiting, urinary symptoms. EKG independent interpreted displaying electronic ventricular pacemaker, vent rate 74 bpm, QTc 431 MS T98.5 F, [place] 70, RR 17, BP 130/72, O2 saturation 96% on room air Admitted for further evaluation of chest pain, patient was started on heparin drip, cardiology consulted, TTE ordered. 08/23: Patient complains only of being fatigued, denied chest pain, pressure, shortness of breath this morning Pertinent Imaging: No new imaging Pertinent positives and negatives as discussed above, a complete review of systems was performed and all other systems are negative. Vitals Signs Reviewed. General: [nontoxic], [no distress], [appears at stated age] Derm: [warm], [dry] Head: [atraumatic], [normocephalic], [symmetric] Eyes: [EOMI], [no lid lag], [anicteric sclera] Mouth: [no lip lesion], [mucus membranes moist] Cardiovascular: [S1S2 reg], [no murmur] Lungs: [CTA bilateral], [no rhonchi, no rales] , [no accessory muscle use] Abdominal: [soft], [ nontender to palpation], [no guarding], [no appreciable organomegaly] Ext: [no gross muscle atrophy], [no edema], [no contractures] Neuro: [ CN II-XI grossly intact], [no focal neuro deficits] Psych: [Alert], [oriented], [appropriate affect] Data Reviewed Today: Pertinent Labs: CBC unremarkable, sodium 139, potassium 3.7, chloride 108, bicarb 24, creatinine 0.76, A1c 6.1, troponin trended down 0.0 33, TSH normal 2.1 Assessment and Plan: Chest pain, resolved Elevated troponin, NSTEMI Ischemic cardiomyopathy EF status post AICD -Cardiology consulted, appreciate recommendations -Continued on IV heparin -Continue aspirin 81 mg p.o. daily -Increase statins to high intensity with atorvastatin 40 -Continue beta-luz with Coreg 3.125 twice daily, continue home Entresto p.o. twice daily -TTE pending -Continue telemetry Prediabetes -Patient to follow-up with primary care physician for further management Hypothyroidism -Continue home Synthroid 62.5 mcg p.o. daily, TSH normal Mild intermittent asthma not in exacerbation -Continue Symbicort inhaler, Singulair 10 mg p.o. at bedtime DVT ppx: Heparin drip Code status: Full code Anticipated discharge place: Home Anticipated discharge time: Pending clinical stability Objective - Vital Signs Vital signs: Vital Signs Temp 97.9 F 08/23/24 07:40 Pulse 69 08/23/24 07:40 Resp 16 08/23/24 07:40 BP 129/73 08/23/24 07:40 Pulse Ox 97 08/23/24 07:40 FiO2 Intake & Output 08/22/24 08/23/24 08/23/24 18:59 06:59 18:59 Intake Total 57.15 0 Balance 57.15 0 Weight 63.503 kg 63.503 kg Intake: Intake, IV Titration 57.15 0 Amount Heparin Sod,Pork in 0.45% 57.15 0 NaCl 25,000 unit In 0.45 % NaCl 1 250ml.bag @ 12 UNITS/KG/HR 7.62 mls/hr IV .Q24H LISA Rx#: [id number] Other: Voiding Method Toilet Toilet # Voids 2 - Labs CBC & Chem 7: 08/23/24 04:58 08/23/24 04:58 Labs: Abnormal Lab Results - Last 24 Hours (Table) 08/22/24 08/22/24 08/23/24 Range/Units 15:03 20:30 04:58 MCHC (32.0-37.0) g/dL RDW (11.5-14.5) % APTT (22.0-30.0) sec Chloride 109 H (98-107) mmol/L Hemoglobin A1c 6.1 H (<=6.0) % Troponin I 0.063 H* (0.000-0.034) ng/mL 08/23/24 08/23/24 08/23/24 Range/Units 04:58 04:58 04:58 MCHC 31.6 L (32.0-37.0) g/dL RDW 14.6 H (11.5-14.5) % APTT >200.0 H* (22.0-30.0) sec Chloride 108 H (98-107) mmol/L Hemoglobin A1c (<=6.0) % Troponin I (0.000-0.034) ng/mL
--- NOTE | 2024-08-23 12:13 | P.CRDCN ---
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 She presented to the hospital with a chest discomfort. She was in her usual state of health till yesterday when she was standing outside home and started experiencing discomfort in the middle of the chest as a pressure on the chest with no radiation except for the neck but no arms or shoulders or back. The discomfort lasted for about 10 minutes. Subsequently she came into the hospital. No shortness of breath or dizziness or lightheadedness or any feeling of heart racing or fluttering or presyncope or syncope or edema in the lower extremities. She underwent further evaluation including troponin came to be abnormal and seems to be consistent with acute coronary syndrome and EKG showed atrial sensed ventricular paced rhythm. The rest of the workup overall came to be unremarkable with the physical examination is remarkable for regular rhythm with a soft systolic murmur and clear breathing sounds bilaterally and no edema was noted. Assessment Acute coronary syndrome CAD with prior stenting as described above Multiple comorbid conditions Plan Continue the current medical regimen including aspirin and statin and heparin Heart catheterization was advised but she would like to be transferred to be seen by her primary superintendent cemetery Past Medical History Past Medical History: Asthma, Coronary Artery Disease (CAD), Hyperlipidemia, Hypertension, Osteoarthritis (OA), Thyroid Disorder Additional Past Medical History / Comment(s): heart murmer, "a lot of burping", "small gallstone", polymyalgia rheumatica, urinary leakage,. COVID 05/16 History of Any Multi-Drug Resistant Organisms: None Reported Past Surgical History: AICD, Appendectomy, Heart Catheterization With Stent, Pacemaker Additional Past Surgical History / Comment(s): two cardiac stents, left oophorectomy, left fallopian tube AICD Past Anesthesia/Blood Transfusion Reactions: Previous Problems w/ Anesthesia Additional Past Anesthesia/Blood Transfusion Reaction / Comment(s): got blood t ransfusion at age 19- got a rash Date of Last Stent Placement:: 2015 Type of Cardiac Device: Permanent Pacemaker, AICD Device Placement Date:: 2015 Past Psychological History: Anxiety Smoking Status: Never smoker Past Alcohol Use History: Occasional Past Drug Use History: None Reported - Past Family History Father Family Medical History: Cancer Additional Family Medical History / Comment(s): Lung cancer Brother(s) Family Medical History: Cancer Mother Family Medical History: Myocardial Infarction (MD) Additional Family Medical History / Comment(s): of MD at age 49. Medications and Allergies Home Medications Medication Instructions Recorded Confirmed Type Aspirin 81 mg PO DAILY 01/11/14 08/22/24 History Fluticasone Propionate [Flonase] 1 spray EA NOSTRIL BID 01/11/14 08/22/24 History Montelukast [Singulair] 10 mg PO HS 01/11/14 08/22/24 History Fluticasone Propion/Salmeterol 1 puff INHALATION RT-BID 11/19/18 08/22/24 History [Advair 100-50 Diskus] Rosuvastatin [Crestor] 10 mg PO DIRECTED 11/19/18 08/22/24 History Levothyroxine Sodium [Synthroid] 62.5 mcg PO DAILY 10/19/22 08/22/24 History Sacubitril/Valsartan [Entresto 24 1 tab PO BID 10/19/22 08/22/24 History mg-26 mg Tablet] Cholecalciferol [Vitamin D3 (125 125 mcg PO DAILY 08/22/24 08/22/24 History Mcg = 5000 Iu)] Clobetasol Propionate [Clobex 1 applic TOPICAL MOWE 08/22/24 08/22/24 History 0.05% Soln] Co Q-10(Unknown Dose) 1 tab PO DAILY 08/22/24 08/22/24 History Estrogens, Conjugated Cream 1 applic VAGINAL DIRECTED 08/22/24 08/22/24 History [Premarin Vaginal Cream] L.acidoph,Paracasei, B.lactis 1 cap PO DAILY 08/22/24 08/22/24 History [Probiotic] Multivitamins, Thera [Multivitamin 1 tab PO DAILY 08/22/24 08/22/24 History (formulary)] carvediloL [Coreg] 3.125 mg PO DIRECTED 08/22/24 08/22/24 History Allergies Allergy/AdvReac Type Severity Reaction Status Date / Time codeine AdvReac Abdominal Verified 08/22/24 20:02 Pain Physical Exam Vitals: Vital Signs Temp Pulse Pulse Resp BP BP BP 08/23/24 07:40 97.9 F 69 16 129/73 08/23/24 02:00 97.6 F 69 17 114/69 08/22/24 20:55 98.5 F 70 17 130/72 08/22/24 20:48 80 18 142/77 08/22/24 19:15 80 18 148/80 08/22/24 16:28 86 18 155/86 08/22/24 14:47 98 F 73 20 152/82 Pulse Ox 08/23/24 07:40 97 08/23/24 02:00 96 08/22/24 20:55 96 08/22/24 20:48 97 08/22/24 19:15 98 08/22/24 16:28 98 08/22/24 14:47 97 Intake and Output 08/22/24 08/23/24 08/23/24 22:59 06:59 14:59 Intake Total 57.15 0 Balance 57.15 0 Intake: Intake, IV Titration 57.15 0 Amount Heparin Sod,Pork in 0.45% 57.15 0 NaCl 25,000 unit In 0.45 % NaCl 1 250ml.bag @ 12 UNITS/KG/HR 7.62 mls/hr IV .Q24H [facility] Rx#: [id number] Other: Voiding Method Toilet Toilet Toilet # Voids 2 2 Weight 63.503 kg Results 08/23/24 04:58 08/23/24 04:58 Cardiac Enzymes 08/22/24 08/22/24 08/22/24 Range/Units 15:03 15:03 18:00 AST 31 (14-36) U/L Troponin I <0.012 0.029 (0.000-0.034) ng/mL 08/22/24 08/23/24 Range/Units 20:30 04:58 AST (14-36) U/L Troponin I 0.063 H* 0.033 (0.000-0.034) ng/mL Coagulation 08/22/24 08/23/24 Range/Units 15:03 04:58 PT 10.9 12.0 (10.0-12.5) sec APTT 25.7 >200.0 H* (22.0-30.0) sec CBC 08/22/24 08/23/24 Range/Units 15:03 04:58 WBC 7.8 6.50 (3.8-10.6) k/uL RBC 4.86 4.57 (3.80-5.40) m/uL Hgb 13.6 12.8 (11.4-16.0) gm/dL Hct 42.3 40.5 (34.0-46.0) % Plt Count 217 209 (150-450) k/uL Comprehensive Metabolic Panel 08/22/24 08/23/24 Range/Units 15:03 04:58 Sodium 141 139 (137-145) mmol/L Potassium 4.0 3.7 (3.5-5.1) mmol/L Chloride 109 H 108 H (98-107) mmol/L Carbon Dioxide 25 24 (22-30) mmol/L BUN 12 10 (7-17) mg/dL Creatinine 0.75 0.76 (0.52-1.04) mg/dL Glucose 91 97 (74-99) mg/dL Calcium 9.0 9.1 (8.4-10.2) mg/dL AST 31 (14-36) U/L ALT 20 (4-34) U/L Alkaline Phosphatase 67 (38-126) U/L Total Protein 7.1 (6.3-8.2) g/dL Albumin 4.0 (3.5-5.0) g/dL Current Medications Generic Name Dose Route Start Last Admin Trade Name Freq PRN Reason Stop Dose Admin Acetaminophen 650 mg 08/22/24 18:49 08/23/24 05:38 Acetaminophen Tab 325 Mg Tab PO 650 mg Q6HR PRN Administration Mild Pain or Fever > 100.5 Hydrocodone Bitart/Acetaminophen 1 each 08/22/24 18:49 Hydrocodone/Apap 5-325mg 1 Each Tab PO Q4HR PRN Moderate Pain (Scale 4 to 6) Aspirin 81 mg 08/23/24 09:00 08/23/24 11:56 Aspirin 81 Mg PO 81 mg DAILY LISA Administration Atorvastatin Calcium 40 mg 08/23/24 21:00 Atorvastatin 40 Mg Tab PO HS [facility] Budesonide/Formoterol Fumarate 2 puff 08/23/24 08:00 08/23/24 08:09 Symbicort 80-4.5 Mcg Inhaler INHALATION 2 puff RT-BID LISA Administration Carvedilol 3.125 mg 08/22/24 21:00 08/23/24 11:56 Carvedilol 3.125 Mg Tab PO 3.125 mg BID LISA Administration Cholecalciferol 125 mcg 08/23/24 09:00 08/23/24 11:56 Cholecalciferol 125 Mcg (5000 Iu) Tablet PO 125 mcg DAILY LISA Administration Clobetasol Propionate 1 applic 08/24/24 20:29 Clobetasol Prop 0.05% Cr 15gm TOPICAL MOWE LISA Estrogens Conjugated 1 applic 08/22/24 20:30 08/22/24 21:14 Estrogens, Conjugated 0.625 Mg/Gm Vaginal Cream 42.5 Gm Tube VAGINAL Not Given TuTh LISA Fluticasone Propionate 1 spray 08/22/24 21:00 08/23/24 11:55 Fluticasone Nasal 50mcg/[place] 16gm Btl EA NOSTRIL 1 spray BID LISA Administration Heparin Sodium (Porcine) 0 unit 08/22/24 22:19 Heparin Sodium 1,000 Un/Ml (10ml Vl) IV PER PROTOCOL PRN Low PTT Protocol Heparin Sodium/Sodium Chloride 250 mls @ 7.62 mls/hr 08/22/24 22:30 08/23/24 07:58 25,000 unit/ Sodium Chloride IV 8 units/kg/hr .Q24H LISA 5.08 mls/hr Titration Protocol 12 UNITS/KG/HR Lactobacillus Acidophilus 1 each 08/23/24 09:00 08/23/24 11:56 Lactobacillus Acidophilus/Pect 1 Each Capsule PO 1 each DAILY LISA Administration Levothyroxine Sodium 62.5 mcg 08/23/24 09:00 08/23/24 11:55 Levothyroxine 125 Mcg Tab PO 62.5 mcg DAILY LISA Administration Montelukast Sodium 10 mg 08/22/24 21:00 08/22/24 22:50 Montelukast 10 Mg Tab PO 10 mg HS LISA Administration Morphine Sulfate 4 mg 08/22/24 18:49 Morphine Sulfate 4 Mg/Ml Syringe IV Q4HR PRN Severe Pain (Scale 7 to 10) Multivitamins 1 each 08/23/24 09:00 08/23/24 11:56 Multivitamins, Thera 1 Each Tab PO 1 each DAILY LISA Administration Naloxone HCl 0.2 mg 08/22/24 18:49 Naloxone 0.4 Mg/Ml 1 Ml Vial IV Q2M PRN Opioid Reversal Ondansetron HCl 4 mg 08/22/24 18:49 Ondansetron 4 Mg/2 Ml Vial IVP Q8HR PRN Nausea And Vomiting Pantoprazole Sodium 40 mg 08/23/24 07:30 08/23/24 06:33 Pantoprazole 40 Mg Tablet PO 40 mg AC-BID LISA Administration Sacubitril/Valsartan 1 each 08/22/24 21:00 08/23/24 11:56 Sacubitril/Valsartan 24 Mg-26 Mg Tablet PO 1 each BID LISA Administration Intake and Output 08/22/24 08/23/24 08/23/24 22:59 06:59 14:59 Intake Total 57.15 0 Balance 57.15 0 Intake: Intake, IV Titration 57.15 0 Amount Heparin Sod,Pork in 0.45% 57.15 0 NaCl 25,000 unit In 0.45 % NaCl 1 250ml.bag @ 12 UNITS/KG/HR 7.62 mls/hr IV .Q24H [facility] Rx#: [id number] Other: Voiding Method Toilet Toilet Toilet # Voids 2 2 Weight 63.503 kg 08/23/24 04:58 08/23/24 04:58
[2024-08-23 13:10] LABS: Chol/HDL Ratio 2.61 Ratio; LDL Cholesterol,Calculated 74.1 mg/dL (0.0-131.0)
--- NOTE | 2024-08-23 14:24 | P.DS ---
Providers Date of admission: 08/22/24 18:44 Attending physician: Edwige Padgett MD Consults: 08/22/24 18:49 Consult Physician Urgent Consulting Provider: Roel Edouard Consult Reason/Comments: Chest pain Do you want consulting provider notified?: Yes Primary care physician: Adeel Johnson Hospital Course: Discharge Diagnosis: ACS CAD with prior history of stenting Hyperlipidemia Hypertension Prediabetes Hypothyroidism Hospital Course: Patient is a 79-year-old female with CAD status post stent x 2 AICD and pacemaker, hyperlipidemia, hypertension presenting with chest pain. Patient states that around 1 PM this afternoon, while outside talking to her , she felt a sudden pressure-like chest pain that radiated up to her neck. She states that the chest pain lasted for 10 minutes and resolved on its own. Denies any exacerbating or alleviating factors. Afterwards she suddenly felt weak and nauseous. During interview patient denied any chest pain. She states she feels weak and fatigued. She says she feels dizzy when laying flat or when she turns her head. Patient denies any fever, diaphoresis, headache, vision changes, shortness of breath, heart palpitations, abdominal pain, vomiting, urinary symptoms. EKG independent interpreted displaying electronic ventricular pacemaker, vent rate 74 bpm, QTc 431 MS T98.5 F, IL 70, RR 17, BP 130/72, O2 saturation 96% on room air Admitted for further evaluation of chest pain, patient was started on heparin drip, cardiology consulted, TTE ordered. She was continued on aspirin, her atorvastatin was increased to high intensity Lipitor 40 mg oral daily, continued on beta-blockers with Coreg 3.125 twice daily at home Entresto twice daily. 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 Transfer center called, patient was accepted. Patient seen and examined at bedside Vital signs reviewed and stable. General: [nontoxic], [no distress], [appears at stated age] Derm: [warm], [dry] Head: [atraumatic], [normocephalic], [symmetric] Eyes: [EOMI], [no lid lag], [anicteric sclera] Mouth: [no lip lesion], [mucus membranes moist] Cardiovascular: [S1S2 reg], [no murmur] Lungs: [CTA bilateral], [no rhonchi, no rales] , [no accessory muscle use] Abdominal: [soft], [ nontender to palpation], [no guarding], [no appreciable organomegaly] Ext: [no gross muscle atrophy], [no edema], [no contractures] Neuro: [ CN II-XI grossly intact], [no focal neuro deficits] Psych: [Alert], [oriented], [appropriate affect] A total of 50 minutes of time were spent preparing this complex discharge summary. Patient was discharged on 08/23/2024. Patient Condition at Discharge: Fair Plan - Discharge Summary Discharge Rx Participant: Yes New Discharge Prescriptions: No Action Montelukast [Singulair] 10 mg PO HS Fluticasone Propionate [Flonase] 1 spray EA NOSTRIL BID Aspirin 81 mg PO DAILY Fluticasone Propion/Salmeterol [Advair 100-50 Diskus] 1 puff INHALATION RT- BID Rosuvastatin [Crestor] 10 mg PO DIRECTED Levothyroxine Sodium [Synthroid] 62.5 mcg PO DAILY Estrogens, Conjugated Cream [Premarin Vaginal Cream] 1 applic VAGINAL DIRECTED L.acidoph,Paracasei, B.lactis [Probiotic] 1 cap PO DAILY carvediloL [Coreg] 3.125 mg PO DIRECTED Sacubitril/Valsartan [Entresto 24 mg-26 mg Tablet] 1 tab PO BID Multivitamins, Thera [Multivitamin (formulary)] 1 tab PO DAILY Cholecalciferol [Vitamin D3 (125 Mcg = 5000 Iu)] 125 mcg PO DAILY Co Q-10(Unknown Dose) 1 tab PO DAILY Clobetasol Propionate [Clobex 0.05% Soln] 1 applic TOPICAL MOWE Discharge Medication List Aspirin 81 mg PO DAILY 01/11/14 [History] Fluticasone Propionate [Flonase] 1 spray EA NOSTRIL BID 01/11/14 [History] Montelukast [Singulair] 10 mg PO HS 01/11/14 [History] Fluticasone Propion/Salmeterol [Advair 100-50 Diskus] 1 puff INHALATION RT-BID 11/19/18 [History] Rosuvastatin [Crestor] 10 mg PO DIRECTED 11/19/18 [History] Levothyroxine Sodium [Synthroid] 62.5 mcg PO DAILY 10/19/22 [History] Sacubitril/Valsartan [Entresto 24 mg-26 mg Tablet] 1 tab PO BID 10/19/22 [History] Cholecalciferol [Vitamin D3 (125 Mcg = 5000 Iu)] 125 mcg PO DAILY 08/22/24 [History] Clobetasol Propionate [Clobex 0.05% Soln] 1 applic TOPICAL MOWE 08/22/24 [History] Co Q-10(Unknown Dose) 1 tab PO DAILY 08/22/24 [History] Estrogens, Conjugated Cream [Premarin Vaginal Cream] 1 applic VAGINAL DIRECTED 08/22/24 [History] L.acidoph,Paracasei, B.lactis [Probiotic] 1 cap PO DAILY 08/22/24 [History] Multivitamins, Thera [Multivitamin (formulary)] 1 tab PO DAILY 08/22/24 [History] carvediloL [Coreg] 3.125 mg PO DIRECTED 08/22/24 [History] Follow up Appointment(s)/Referral(s): Adeel Johnson DO [Primary Care Provider] - 1-2 days
[2024-08-23 14:43] VITALS: BP 137/82; PULSE 82
--- NOTE | 2024-08-23 17:01 | CA ---
Transthoracic Echo Report Name: Jeana Hollis Age: 79 Gender: F : 1945 Exam Date: 08/23/2024 12:41 Exam Location: [facility] Ht (in): 65 Wt (lb): 140 Ordering Physician: Shaye Oliver MD Attending/Referring Phys: Family Caseworker Hien Mcclellan RDCS Procedure CPT: Indications: Chest Pain Cardiac Hx: Technical Quality: Technically difficult study Contrast 1: Definity Total Dose (mL): 2 Contrast 2: Total Dose (mL): MEASUREMENTS (Male / Female) Normal Values 2D ECHO LV Diastolic Diameter PLAX 4.3 cm 4.2 - 5.9 / 3.9 - 5.3 cm LV Systolic Diameter PLAX 3.4 cm IVS Diastolic Thickness 1.3 cm 0.6 - 1.0 / 0.6 - 0.9 cm LVPW Diastolic Thickness 1.3 cm 0.6 - 1.0 / 0.6 - 0.9 cm LV Relative Wall Thickness 0.6 RV Internal Dim ED PLAX 3.3 cm LA Systolic Diameter LX 3.3 cm 3.0 - 4.0 / 2.7 - 3.8 cm LV Diastolic Volume MOD BP 60.0 cm??? 67 - 155 / 56 - 104 cm??? LV Systolic Volume MOD BP 32.0 cm??? - / 19 - 49 cm??? LV Ejection Fraction MOD BP 46.7 % >= 55 % LV Cardiac Index MOD BP 1260.1 cm???/min???m??? LV Diastolic Volume MOD 4C 67.4 cm??? LV Systolic Volume MOD 4C 35.4 cm??? LV Ejection Fraction MOD 4C 47.5 % LV Cardiac Index MOD 4C 1437.9 cm???/min???m??? LV Diastolic Length 4C 7.3 cm LV Systolic Length 4C 7.2 cm LV Diastolic Volume MOD 2C 52.0 cm??? LV Systolic Volume MOD 2C 26.1 cm??? LV Ejection Fraction MOD 2C 49.9 % LV Cardiac Index MOD 2C 1167.3 cm???/min???m??? LV Diastolic Length 2C 7.7 cm LV Systolic Length 2C 6.3 cm LA Volume 46.3 cm??? - 58 / 22 - 52 cm??? LA Volume Index 27.0 cm???/m??? 16 - 28 cm???/m??? M-MODE Aortic Root Diameter MM 3.1 cm DOPPLER AV Peak Velocity 131.3 cm/s AV Peak Gradient 6.9 mmHg AI Peak Velocity 289.9 cm/s AI Peak Gradient 33.6 mmHg AI Pressure Half Time 1165.7 ms MV Peak Velocity 154.9 cm/s MV Peak Gradient 9.6 mmHg MV Mean Velocity 78.9 cm/s MV Mean Gradient 3.2 mmHg MV Velocity Time Integral 25.2 cm MV Area PHT 4.4 cm??? MR Peak Velocity 585.2 cm/s MR Peak Gradient 137.0 mmHg Mitral E Point Velocity 75.4 cm/s Mitral A Point Velocity 121.8 cm/s Mitral E to A Ratio 0.6 MV Deceleration Time 173.5 ms FINDINGS Left Ventricle Left ventricular ejection fraction is estimated at 40-45 %. Left ventricular cavity size normal. Mildly increased septal wall thickness. Moderately increased posterior wall thickness. Mildly decreased left ventricular ejection fraction. Apicl septum hypokinesis. Apical lateral hypokinesis. Apical inferior and anterior hypokinesis Right Ventricle Mild right ventricular dilatation. Unable to estimate the right ventricular systolic pressure. Right Atrium Right atrium not well visualized. Left Atrium Normal left atrial size. No left atrial thrombus or mass present. Mitral Valve Mitral valve thickened. [id number] mitral regurgitation. Aortic Valve Trileaflet aortic valve. Diffuse thickening (sclerosis) of the aortic valve cusps without reduced excursion. Mild aortic regurgitation. Tricuspid Valve Structurally normal tricuspid valve. No tricuspid stenosis, regurgitation or prolapse. Pulmonic Valve Structurally normal pulmonic valve. Trace pulmonic regurgitation. Pericardium No pericardial effusion. Aorta Normal size aortic root and proximal ascending aorta. CONCLUSIONS Impaired LV function with EF between 40 to 45% Aortic sclerosis with mild aortic insufficiency Mild to moderate MR Previewed by: Dr. Roel Edouard MD (Electronically Signed) Final Date: 23 August 2024 17:00
[2024-08-23] MEDS ORDERED: ATORVASTATIN 40 MG TAB PO SCH (21:00)
[2024-08-24] MEDS ORDERED: CLOBETASOL PROP 0.05% CR 15GM TOPICAL SCH (20:29)
== END 2024-08-23 15:45 | disposition short-term general hospital (02) ==
LOC: EC 14:32 → 6NMEDSUR 18:44
PROVIDERS: ADMIT Student in an Organized Health Care Education/Training Program; ATTEND Student in an Organized Health Care Education/Training Program
DX: I24.9 Acute ischemic heart disease, unspecified (principal); I25.10 Atherosclerotic heart disease of native coronary artery without angina pectoris; I25.5 Ischemic cardiomyopathy; R73.03 Prediabetes; E03.9 Hypothyroidism, unspecified; J45.20 Mild intermittent asthma, uncomplicated; I10 Essential (primary) hypertension; E78.5 Hyperlipidemia, unspecified; M54.2 Cervicalgia; Z79.82 Long term (current) use of aspirin; Z79.51 Long term (current) use of inhaled steroids; Z79.890 Hormone replacement therapy; Z79.899 Other long term (current) drug therapy; Z88.5 Allergy status to narcotic agent; Z95.810 Presence of automatic (implantable) cardiac defibrillator; Z95.5 Presence of coronary angioplasty implant and graft
CPT/HCPCS: 96376; 96365; 96366; 99285; 36415; 94640; 93005 ×3; 93306; 80061; 80053; 80048; 84443; 83735; 84484 ×2; 85025 ×2; 85610 ×2; 85730 ×2; 81003; 83036; 71046; G0378 ×2; Q9957; J1644 ×2

== ENCOUNTER → 2024-09-09 | Day surgery (SDC) | payer MEDICARE ==
--- NOTE | 2024-09-14 11:26 | MM ---
Reason for Exam: Post Procedure Mammogram. Last screening mammogram was performed less than 1 month ago. Patient History: Menarche at age 13. First Full-Term at age 17. Left ovary removed at age 17. Postmenopausal. Patient has history of breast feeding. Risk Values: Darling 5 year model risk: 1.1%. NCI Lifetime model risk: 1.7%. Prior Study Comparison: 06/18/2001 Bilateral Screening Mammogram, [facility]. 06/12/2022 Bilateral Screening Mammogram, [facility]. 07/25/2023 Bilateral Screening Mammogram, [facility]. 08/12/2024 Bilateral MG 3D screening mammo w/cad, [facility]. 08/17/2024 Left MG 3D work up w/cad LT, [facility]. 08/17/2024 Left US breast workup limited , [facility]. Tissue Density: Left: The breasts are heterogeneously dense, which may obscure small masses. Pathology Description: Location: 3 o'clock. Marker Left Behind. Needle Type: Celero Cores: 4 Gauge: 12 The procedure of ultrasound guided core biopsy was explained to the patient. Benefits, alternatives, and risks were discussed. An informed consent was then obtained. The patient was placed in supine positioning for imaging and for the procedure. The overlying skin was prepped and draped in usual sterile fashion. Lidocaine buffered with bicarbonate was used as anesthetic into the skin and subcutaneous tissue up to area of concern in the left 3:00 breast 8 centimeters from the nipple. A tori was made with surgical scalpel. Under ultrasound guidance, a 12-gauge vacuum assisted biopsy gun device was used to obtain 4 core samples. Following this, a coil biopsy clip was left in lesion. There is a microclip marker adjacent to this area from prior stereotactic core biopsy. The patient tolerated the procedure well without any immediate complication. The patient was kept in the radiology department for short stay after the procedure and then discharged home in stable condition. Postprocedure mammogram: The patient was transferred to mammography for physician ordered post procedure mammogram for clip placement verification. Post procedure mammogram demonstrates the clip in appropriate placement. Impression: Successful, uncomplicated ultrasound guided core biopsy of area of concern in the left 3:00 breast, full pathology results to follow. [facility], , 09/09/2024 11:39 AM. Pathology Results: Result: Malignant, Invasive ductal carcinoma. Pathology and radiology were reviewed. Findings are concordant. LEFT BREAST, 3:00 8 CMFN, NEEDLE CORE BIOPSY: Invasive well differentiated ductal carcinoma (Grade 1). See Surgical Pathology Cancer Case Summary and Comment. Overall Assessment: Malignant Assessment: MG diagnostic mammo LT wo CAD. - Left: Known biopsy proven malignancy, BI-RAD 6. Management: Surgical Consultation of the left breast. Electronically signed and approved by: Lencho Tao M.D. Radiologis
== END ==
LOC: RADUSWWP 10:06
PROVIDERS: ATTEND Family Medicine
DX: C50.812 Malignant neoplasm of overlapping sites of left female breast (principal); R92.8 Other abnormal and inconclusive findings on diagnostic imaging of breast; Z78.0 Asymptomatic menopausal state; Z90.721 Acquired absence of ovaries, unilateral
CPT/HCPCS: 88305; 77065; 19083; A4648